=== PATIENT | female | born 1955 | race Caucasian/White ===

== ENCOUNTER 2019-09-20 08:24 | Day surgery (SDC) | payer OTHER ==
[2019-09-17 13:40] VITALS: BMI 28.8
--- NOTE | 2019-09-17 14:10 | RAD REPORT ---
EXAM DESCRIPTION: Bony Patel (2 Views)09/17/2019 2:02 pm CLINICAL HISTORY: Preop for cardiac catheterization COMPARISON: None FINDINGS: The lungs appear clear of acute infiltrate. The heart is mildly enlarged IMPRESSION: No acute abnormalities displayed
[2019-09-17 14:23] LABS: Absolute Lymphocytes (CBC) 1.9 K/uL (0.7-4.9); Basophils % 0.6 % (0-1.3); Hematocrit 39.1 % (36.0-45.0); Lymphocytes % 26.7 % (15.3-44.8); MPV 9.2 fL (7.6-11.3); RBC Red Blood Cell Count 4.53 M/uL (3.86-4.86)
[2019-09-17 14:30] LABS: Potassium 3.4 mmol/L (3.5-5.1)
[2019-09-17 14:53] LABS: Protime INR 1.96
--- NOTE | 2019-09-17 17:19 | EKG ---
Test Date: 2019-09-17 Test Time: 13:54:56 Shoe Repairer Helper: PATRICK MEASUREMENT RESULTS: Intervals: Rate: 60 SD: 146 QRSD: 84 QT: 428 QTc: 428 [place]: P: 54 SD: 146 QRS: -5 T: 66 INTERPRETIVE STATEMENTS: Sinus rhythm with marked sinus arrhythmia Nonspecific T wave abnormality Abnormal ECG No previous ECG available for comparison Electronically Signed On 09-17-19 17:18:10 CDT by Cody Dickerson
[2019-09-20] MEDS ORDERED: NA CHLORIDE 0.9% 500 ML ONE (08:29)
[2019-09-20] MEDS ORDERED: ATROPINE SULF 1 MG/10 ML SYR IV ONE (08:39)
[2019-09-20] MEDS ORDERED: HEPARIN 5000 UNIT/ML 1 ML VIAL ONE (08:39)
[2019-09-20] MEDS ORDERED: NICARDIPINE HCL 25 MG/10 ML IV ONE (08:39)
[2019-09-20] MEDS ORDERED: HEPA 1000U/500MLS 2,000 UNIT/1,000 ML BAG IV ONE (08:39)
[2019-09-20] MEDS ORDERED: NA CHLORIDE 0.9% 50 ML ONE (08:39)
[2019-09-20] MEDS ORDERED: FENTANYL CITR 100 MCG/2 ML ONE (09:01)
[2019-09-20] MEDS ORDERED: MIDAZOLAM HCL 2 MG/2 ML INJ ONE ×4 (09:01→09:45)
[2019-09-20] MEDS ORDERED: ASPIRIN 81 MG CHEWABLE TABLET ONE (10:19)
[2019-09-20] MEDS ORDERED: PRASUGREL (EFFIENT) 10 MG TAB ONE (10:20)
[2019-09-20] MEDS ORDERED: ESZOPICLONE 1 MG TAB PO PRN (10:43)
[2019-09-20] MEDS ORDERED: NITROGLYCERIN 0.4 MG/TAB SL PRN (13:00)
[2019-09-20] MEDS ORDERED: ACETAMINOPHEN 325 MG TABLET PO PRN (13:00)
[2019-09-20] MEDS ORDERED: NA CHLORIDE 0.9% 1,000 ML IV SCH (13:00)
[2019-09-20 18:00] VITALS: O2SAT 96
[2019-09-20] MEDS: CARVEDILOL 12.5 MG TAB PO SCH (18:15)
[2019-09-20] MEDS ORDERED: PNEUMOCOCCAL VACCINE 0.5 ML IMVAC ONE (19:00)
[2019-09-20] MEDS ORDERED: ATORVASTATIN 80 MG TAB PO SCH (21:00)
--- NOTE | 2019-09-20 21:35 | OP ---
Surgeon: Cody Dickerson MD Procedure: Left heart catheterization with coronary left ventricular angiography and percutaneous co ronary intervention with a stent in her mid LAD successful. Findings: The patient has a normal right coronary artery, normal left main, normal circumflex. Prox imal LAD likewise is normal. The mid LAD has a 20 mm long complicated irregular lesion with stenosis up to 80%. This was successfully dilated with a stent and after the procedure, the percent stenosis is 0% with JAYNA grade 3 flow. A 2.75 x 20 Synergy stent was used. Procedure In Detail: The patient was brought to the cardiac mobile lab technician in a fasting state. She had an abnormal Cardiolite showing apical ischemia. Right radial approach was used. She was prepared and draped in usual sterile fashion, sedated with Versed and fentanyl. Lidocaine 1% was used to anesthet ize the skin over the right radial artery. The artery was entered using a 21-gauge needle, cannulate d with a 0.021 inch diameter guidewire, 6-Bolivian Terumo sheath placed. Sheath was flushed and radial cocktail was given consisting of nicardipine, heparin, nitroglycerin. We guided a TIG catheter into the ascending aorta and angiogram of right coronary, left coronary, left ventricle all with this. A fter the decision was made to place a stent in the LAD, an exchange length J-wire and catheter was le ft in the ascending aorta. TIG catheter was removed. Angiomax was given. We demonstrated activated clotting time more than 400 seconds. An XB LAD 3.5 with side holes was used. It gave adequate supp ort. There was some difficulty cannulating the LAD and several repositionings of the guide had to be done. Once it was cannulated, it was difficult to actually cross the lesion because of side branche s. Once it was crossed, there was no predilation needed. We used a 2.75 x 20 stent to cross the les ion, inflated to 12 atmospheres, 1 reinflation after deflation and then the balloon part of the stent device was withdrawn and pictures were taken. Adequate result was seen, so we removed the wire and took orthogonal views. The angiographic result was excellent. We did use a 2.0 x 12 Emerge balloon. We never inflated it. It was used to support the wire and help it make some bends that would not d o without some kind of support, so there was no inflation of the 2.0 balloon. Complications: None. Estimated Blood Loss: 30 mL. Intranet Support: Lelia Li. ANASTASIA/HA Voice ID: [id number] Report ID: [id number]
[2019-09-20] MEDS: CODEINE 30MG/APAP 300MG TAB PO SCH (22:21)
[2019-09-20] MEDS: CILOSTAZOL 100 MG TAB PO SCH (22:21)
[2019-09-21 04:08] LABS: Hematocrit 35.8 % (36.0-45.0); MPV 9.3 fL (7.6-11.3); RBC Red Blood Cell Count 4.14 M/uL (3.86-4.86)
[2019-09-21 04:19] LABS: Protime INR 0.94
[2019-09-21] MEDS: CARVEDILOL 12.5 MG TAB PO SCH (06:18)
[2019-09-21] MEDS: CILOSTAZOL 100 MG TAB PO SCH (08:44)
[2019-09-21] MEDS: CODEINE 30MG/APAP 300MG TAB PO SCH (08:44)
[2019-09-21] MEDS ORDERED: VITAMIN D 1000 UNIT TAB PO SCH (09:00)
[2019-09-21] MEDS ORDERED: hydroCHLOROthiazide 25 MG TAB PO SCH (09:00)
[2019-09-21] MEDS ORDERED: ASPIRIN EC 81 MG TAB PO SCH (09:00)
[2019-09-21] MEDS ORDERED: CLOPIDOGREL 75 MG TABLET PO SCH (09:00)
[2019-09-21 10:48] VITALS: BP 122/68; TEMP 97.4
--- NOTE | 2019-09-22 04:42 | DS ---
Date of Discharge: 09/21/2019 She is discharged from outpatient in a bed status. Discharge Diagnosis: Coronary heart disease with a stent in her mid LAD artery. Procedures In The Hospital: Left heart catheterization, coronary angiography, left ventricular angio graphy, and percutaneous coronary intervention stent of the mid LAD with a 2.75 x 20 Synergy stent. Discharge Medications: Lipitor 80 mg per day, aspirin 81 mg per day, Plavix 75 mg per day, Coreg 12. 5 mg b.i.d., hydrochlorothiazide 25 mg daily, she also takes Lunesta, vitamin D, Tylenol 3 sometimes for her chronic pain syndrome prescribed by a pain specialist. Discharge Instructions: Her followup was to be with me in 2 weeks. She is to follow a low-saturated fat, low-sugar diet, begin an exercise program or alternatively we will send her to cardiac rehab. She seems to understand the procedure that was done, her discharge diagnosis, medications, diet plan, and followup plan. She will call my office when she gets home today. Her right radial cardiac cath site looks good. There is some bruising that occurred because the band slipped off in the first 5 m inutes. It was put on, but there is hemostasis and good blood flow to the hand and I expect a full r ecovery. ANASTASIA/HA Voice ID: [id number] Report ID: [id number]
== END 2019-09-21 08:58 | disposition home or self-care (01) ==
LOC: CCL 08:24 → 2ND 10:41 → CCL 09-21 08:58
PROVIDERS: ATTEND Internal Medicine
DX: I25.118 Atherosclerotic heart disease of native coronary artery with other forms of angina pectoris (principal); I48.0 Paroxysmal atrial fibrillation; I10 Essential (primary) hypertension; E78.2 Mixed hyperlipidemia; G47.30 Sleep apnea, unspecified; Z79.01 Long term (current) use of anticoagulants; Z87.891 Personal history of nicotine dependence; Z88.3 Allergy status to other anti-infective agents
CPT/HCPCS: 93005; 85025; 80048 ×2; 36415 ×2; 85610 ×2; 85347; 85730; 85027; 71046; 90471; 93458; 90670; C1893; C1725; C1877; C9600; J1644; J2250 ×4; J3010; J0583; J7040

== ENCOUNTER 2019-10-12 18:09 | Emergency (ER) | payer OTHER ==
--- NOTE | 2019-10-12 18:59 | RAD REPORT ---
EXAM DESCRIPTION: RAD - Wrist Right 3 View - 10/12/2019 6:52 pm CLINICAL HISTORY: PAIN Pain COMPARISON: No comparisons FINDINGS: Comminuted intra-articular fracture of the distal radius is seen. Ulnar styloid avulsion fracture also present.
--- NOTE | 2019-10-12 18:59 | RAD REPORT ---
EXAM DESCRIPTION: RAD - Hand Right 3 View - 10/12/2019 6:54 pm CLINICAL HISTORY: PAIN COMPARISON: No comparisons FINDINGS: Comminuted intra-articular fracture distal radius is seen with moderate angulation. Ulnar styloid avulsion fracture also present.
[2019-10-12] MEDS ORDERED: ONDANSETRON 4 MG/2 ML VIAL ONE (19:13)
[2019-10-12] MEDS ORDERED: MORPHINE 4 MG/ML SYR ONE (19:13)
[2019-10-12] MEDS ORDERED: FENTANYL CITR 100 MCG/2 ML ONE ×3 (19:36→21:09)
[2019-10-12] MEDS ORDERED: PROPOFOL 200 MG/20 ML VIAL IV ONE (20:09)
[2019-10-12] MEDS ORDERED: NA CHLORIDE 0.9% 500 ML ONE (20:09)
--- NOTE | 2019-10-12 20:46 | RAD REPORT ---
EXAM DESCRIPTION: RAD - Wrist Right 2 View - 10/12/2019 8:40 pm CLINICAL HISTORY: PAIN Pain COMPARISON: Wrist Right 3 View dated 10/12/2019 FINDINGS: The previously noted distal radius and ulnar fractures have been reduced and placed within a splint. Mild fracture impaction and slight displacement fracture fragments persists. No dislocat ion evident.
--- NOTE | 2019-10-12 20:47 | RAD REPORT ---
EXAM DESCRIPTION: RAD - Knee Right 3 View - 10/12/2019 8:38 pm CLINICAL HISTORY: PAIN COMPARISON: No comparisons FINDINGS: No acute fracture or dislocation is seen. Trace suprapatellar joint effusion.
[2019-10-12] MEDS ORDERED: HYDROCODONE/APAP 10/325 TAB ONE (20:55)
--- NOTE | 2019-10-12 21:07 | ER ---
Nurse's Notes [facility] Name: Elena Chan Age: 64 yrs Sex: Female : 1955 Arrival Date: 10/12/2019 Time: 18:10 Bed 2 Private MD: Diagnosis: Closed comminuted intra-articular distal radiis and ulna fracture Presentation: 10/12 18:36 Presenting complaint: Patient states: patient fell while doing gardening and hit her rv wrist on a concrete. actively bleeding. Care prior to arrival: None. Mechanism of Injury: Fall. Trauma event details: Injury occurred in the [facility], Injury occurred: at home. Injury occurred: October 12, 2019 Injury occurred at: 18:00. 18:36 Acuity: FAN 3 rv 18:36 Method Of Arrival: Ambulatory rv 18:41 Transition of care: patient was not received from another setting of care. Onset of rv symptoms was October 12, 2019 at 18:00. Risk Assessment: Do you want to hurt yourself or someone else? Patient reports no desire to harm self or others. Initial Sepsis Screen: Does the patient meet any 2 criteria? No. Patient's initial sepsis screen is negative. Does the patient have a suspected source of infection? No. Patient's initial sepsis screen is negative. Triage Assessment: 18:41 General: Appears uncomfortable, Behavior is calm, cooperative. Pain: Complains of pain rv in right hand. EENT: No signs and/or symptoms were reported regarding the EENT system. Neuro: Level of Consciousness is awake, alert, obeys commands, Oriented to person, place, time, situation. Cardiovascular: Patient's skin is warm and dry. Respiratory: Airway is patent. GI: No signs and/or symptoms were reported involving the gastrointestinal system. : No signs and/or symptoms were reported regarding the genitourinary system. Derm: Skin with poor turgor. Musculoskeletal: Swelling present in right hand. Injury Description: Deformity sustained to right hand is displaced, dislocated, was sustained 30-60 minutes ago. Historical: - Allergies: 18:41 unable to recall; rv - Home Meds: 18:41 Plavix 75 mg Oral tab 1 tab once daily [Active]; Aspirin Oral [Active]; rv - PMHx: 18:41 Hypertension; rv - PSHx: 18:41 Angioplasty; rv - Immunization history:: Adult Immunizations up to date. - Social history:: Smoking status: unknown. - Ebola Screening: : No symptoms or risks identified at this time. Screenin:41 Abuse screen: Denies threats or abuse. Denies injuries from another. Nutritional bp screening: No deficits noted. Tuberculosis screening: No symptoms or risk factors identified. Fall Risk Fall in past 12 months (25 points). No secondary diagnosis (0 pts). No IV (0 pts). Ambulatory Aid- None/Bed Rest/Nurse Assist (0 pts). Gait- Normal/Bed Rest/Wheelchair (0 pts) Mental Status- Oriented to own ability (0 pts). Total Avelar Fall Scale indicates Low Risk Score (25-44 pts). Fall prevention measures have been instituted. Side Rails Up X 2 Placed close to Nursing Station Frequent Obs/Assesments occuring Family Present and informed to notify staff if they need to leave bedside As available Patient and Family Educated on Fall Prevention Program and strategies. Assessment: 18:41 General: SEE TRIAGE NOTE. bp 18:45 General: Appears uncomfortable, Behavior is calm, cooperative. Pain: Complains of pain aa5 in right wrist Pain does not radiate. Pain currently is 10 out of 10 on a pain scale. Quality of pain is described as sharp, throbbing, Pain began post-fall Is continuous. Neuro: Level of Consciousness is awake, alert, obeys commands, Oriented to person, place, time, situation. Cardiovascular: Heart tones S1 S2 present Capillary refill < 3 seconds is brisk in bilateral fingers Rhythm is regular. Respiratory: Airway is patent Respiratory effort is even, unlabored, Respiratory pattern is regular, symmetrical. GI: No signs and/or symptoms were reported involving the gastrointestinal system. : No signs and/or symptoms were reported regarding the genitourinary system. EENT: No signs and/or symptoms were reported regarding the EENT system. Derm: Skin is pink, warm \T\ dry. Laceration that is difficult to visualize at this time noted to right little finger, dry blood noted to site, no active bleeding at this time. Musculoskeletal: Deformity noted to right wrist. 19:15 General: Appears uncomfortable, Behavior is appropriate for age. Pain: Complains of lp1 pain in right wrist Pain currently is 10 out of 10 on a pain scale. Neuro: No deficits noted. Cardiovascular: Patient's skin is warm and dry. Respiratory: No deficits noted. Derm: Skin is pink, warm \T\ dry. Musculoskeletal: Bony deformity noted of right wrist. 20:00 Reassessment: Dr. St at bedside for conscious sedation. lp1 20:30 Reassessment: States pain to right wrist at this time;. General: Appears in no apparent lp1 distress. Neuro: Level of Consciousness is awake, alert, obeys commands. Cardiovascular: Capillary refill < 3 seconds in right fingers Splint in place to right arm . 20:50 Reassessment: Verbal order from Dr. St for [place] 10-325 x1 PO. lp1 21:10 Reassessment: Dr. St at bedside to update patient and family; Verbal order for lp1 Fentanyl 50 mcg IV x1 and Tetanus IM x1. 21:25 Reassessment: Patient appears in no apparent distress at this time. Patient states lp1 feeling better. Patient states symptoms have improved. Cardiovascular: Capillary refill < 3 seconds in right fingers. Vital Signs: 18:37 BP 159 / 62; Pulse 72; Resp 16; Pulse Ox 100% ; Weight 76.2 kg; Height 5 ft. 4 in. rv (162.56 cm); 19:23 BP 139 / 90; Pulse 73; Resp 18; Pulse Ox 99% on R/A; Pain 10/10; lp1 20:00 BP 139 / 85; Pulse 65; Resp 17; Temp 98.1(O); Pulse Ox 98% on R/A; lp1 20:38 BP 127 / 71; Pulse 64; Resp 15; Pulse Ox 96% on R/A; lp1 21:00 BP 131 / 72; Pulse 62; Resp 15; Pulse Ox 97% on R/A; Pain 9/10; lp1 18:37 Body Mass Index 28.84 (76.20 kg, 162.56 cm) rv [place] Coma Score: 18:37 Eye Response: spontaneous(4). Verbal Response: oriented(5). Motor Response: obeys rv commands(6). Total: 15. Trauma Score (Adult): 18:37 Eye Response: spontaneous(1); Verbal Response: oriented(1); Motor Response: obeys rv commands(2); Systolic BP: > 89 mm Hg(4); Respiratory Rate: 10 to 29 per min(4); [place] Score: 15; Trauma Score: 12 ED Course: 18:10 Patient arrived in ED. am2 18:36 Richard Nobles RN is Primary Nurse. rv 18:37 Triage completed. rv 18:41 Patient has correct armband on for positive identification. Bed in low position. Call bp light in reach. Side rails up X2. 18:[address] MD is Attending Physician. kdr 18:53 XRAY Wrist RIGHT 3 view In Process Unspecified. EDMS 18:53 XRAY Hand RIGHT 3 View In Process Unspecified. EDMS 18:53 Arm band placed on. bp 19:00 Report given to CHRISTEN Gomez. aa5 19:22 Inserted saline lock: 22 gauge in left antecubital area, using aseptic technique. lp1 19:58 Dressings: Band aid x 1 palmar aspect of middle phalanx of right little finger. jb5 Irrigation of opened blood blister on the underside of the right pinky finger. on palmar aspect of middle phalanx of right little finger irrigated with normal saline Patient tolerated well. 20:00 Consent for conscious sedation explained by staff, explained by physician, signed by lp1 spouse. 20:00 Assist provider with reduction of right wrist using manipulation, Set up for procedure. lp1 Performed by Bharath St MD Immobilized with sling. 20:10 Sugar tong splint to right arm; Dr. St at bedside. lp1 20:10 Sling applied to right arm. lp1 20:39 Wrist Right 2 View XRAY In Process Unspecified. EDMS 20:39 Knee Right 3 View XRAY In Process Unspecified. EDMS 21:05 Aron Mansfield MD is Referral Physician. kdr 21:25 IV discontinued, No redness/swelling at site. Pressure dressing applied. lp1 Administered Medications: 19:22 Drug: morphine 4 mg Route: IVP; Site: left antecubital; lp1 19:40 Follow up: Response: No adverse reaction; No change in condition; Pain is unchanged, lp1 physician notified 19:22 Drug: Zofran 4 mg Route: IVP; Site: left antecubital; lp1 19:40 Follow up: Response: No adverse reaction lp1 19:40 Drug: fentaNYL (PF) 50 mcg {Note: RASS 0.} Route: IVP; Site: left antecubital; bb 20:00 Follow up: Response: Pain is decreased lp1 20:14 Drug: Propofol 100 mg {Note: Administered by Dr. St.} Route: IVP; Site: left lp1 antecubital; 20:15 Follow up: Response: Marked relief of symptoms lp1 20:14 Drug: NS 0.9% 500 ml Route: IV; Rate: bolus; Site: left antecubital; lp1 20:30 Follow up: IV Status: IV converted to saline lock; IV Intake: 250ml lp1 20:55 Drug: [place] 10 mg-325 mg 1 tabs {Note: RASS 1.} Route: PO; lp1 21:19 Follow up: Response: No adverse reaction lp1 21:14 Drug: fentaNYL (PF) 50 mcg Route: IVP; Site: left antecubital; lp1 21:30 Follow up: Response: Pain is decreased; RASS: Alert and Calm (0) lp1 21:20 Drug: Tetanus-Diphtheria Toxoid Adult 0.5 ml {Drapery Worker: Digerati. Exp: lp1 05/06/2021. Lot #: [id number]. } Route: IM; Site: left deltoid; 21:30 Follow up: Response: Medication administered at discharge. lp1 Intake: 20:30 IV: 250ml; Total: 250ml. lp1 Outcome: 21:06 Discharge ordered by . kdr 21:25 Discharged to home via wheelchair, with family. lp1 21:25 Condition: good 21:25 Discharge instructions given to patient, family, Instructed on discharge instructions, follow up and referral plans. medication usage, Demonstrated understanding of instructions, follow-up care, medications, splint care, Prescriptions given X 1. 21:30 Patient left the ED. lp1 Signatures: Dispatcher [employer] EDMS Bharath St MD MD kdr Deisy Clifton RN RN bb Shanita Jackson, RN RN [email or web address] Patricia Acosta RN RN lp1 Ritika Palma Amanda am2 Peltier, Brian RN RN bp Richard Nobles RN RN rv Corrections: (The following items were deleted from the chart) 18:43 18:37 Pulse 72bpm; Resp 16bpm; Pulse Ox 100%; 76.2 kg; Height 5 ft. 4 in.; BMI: 28.8; rvrv 21:18 21:10 Reassessment: Dr. St at bedside to update patient and family; Verbal order lp1 for Fentanyl 50 mcg IV x1 lp1 21: 21:44 Patient left the ED. lp1 lp1
--- NOTE | 2019-10-12 21:07 | EDPHYS ---
Physician Documentation [facility] Name: Elena Chan Age: 64 yrs Sex: Female : 1955 Arrival Date: 10/12/2019 Time: 18:10 Bed 2 Private MD: ED Physician Bharath tS HPI: 10/12 20:29 This 64 yrs old Female presents to ER via Ambulatory with complaints of Fall kdr Injury, Wrist Injury. 20:29 Details of fall: The patient fell from an upright position, while walking. Onset: The kdr symptoms/episode began/occurred acutely, just prior to arrival. Associated injuries: The patient sustained right wrist, decreased range of motion, deformity, right knee, contusion, painful injury. Historical: - Allergies: 18:41 unable to recall; rv - Home Meds: 18:41 Plavix 75 mg Oral tab 1 tab once daily [Active]; Aspirin Oral [Active]; rv - PMHx: 18:41 Hypertension; rv - PSHx: 18:41 Angioplasty; rv - Immunization history:: Adult Immunizations up to date. - Social history:: Smoking status: unknown. - Ebola Screening: : No symptoms or risks identified at this time. ROS: 20:29 Constitutional: Negative for fever, chills, and weight loss, Eyes: Negative for injury, kdr pain, redness, and discharge, Neck: Negative for injury, pain, and swelling, Cardiovascular: Negative for chest pain, palpitations, and edema, Respiratory: Negative for shortness of breath, cough, wheezing, and pleuritic chest pain, Abdomen/GI: Negative for abdominal pain, nausea, vomiting, diarrhea, and constipation, Back: Negative for injury and pain, : Negative for injury, bleeding, discharge, and swelling, Skin: Negative for injury, rash, and discoloration, Neuro: Negative for headache, weakness, numbness, tingling, and seizure activity. Psych: Negative for depression, anxiety, suicide ideation, homicidal ideation, and hallucinations, Allergy/Immunology: Negative for hives, rash, and allergies, Endocrine: Negative for neck swelling, polydipsia, polyuria, polyphagia, and marked weight changes, Hematologic/Lymphatic: Negative for swollen nodes, abnormal bleeding, and unusual bruising. 20:29 MS/extremity: Positive for injury or acute deformity, decreased range of motion, pain, swelling, tenderness, There is an abrasion to the greater thenar eminence - does not appear to be associated with the fracture (not open).. Exam: 20:29 Constitutional: This is a well developed, well nourished patient who is awake, alert, kdr and in no acute distress. Head/Face: Normocephalic, atraumatic. Eyes: Pupils equal round and reactive to light, extra-ocular motions intact. Lids and lashes normal. Conjunctiva and sclera are non-icteric and not injected. Cornea within normal limits. Periorbital areas with no swelling, redness, or edema. Neck: Trachea midline, no thyromegaly or masses palpated, and no cervical lymphadenopathy. Supple, full range of motion without nuchal rigidity, or vertebral point tenderness. No Meningismus. Chest/axilla: Normal chest wall appearance and motion. Nontender with no deformity. No lesions are appreciated. Cardiovascular: Regular rate and rhythm with a normal S1 and S2. No gallops, murmurs, or rubs. Normal PMI, no JVD. No pulse deficits. Respiratory: Lungs have equal breath sounds bilaterally, clear to auscultation and percussion. No rales, rhonchi or wheezes noted. No increased work of breathing, no retractions or nasal flaring. Abdomen/GI: Soft, non-tender, with normal bowel sounds. No distension or tympany. No guarding or rebound. No evidence of tenderness throughout. Back: No spinal tenderness. No costovertebral tenderness. Full range of motion. MS/ Extremity: Pulses equal, no cyanosis. Neurovascular intact. Full, normal range of motion. Neuro: Awake and alert, GCS 15, oriented to person, place, time, and situation. Cranial nerves II-XII grossly intact. Motor strength 5/5 in all extremities. Sensory grossly intact. Cerebellar exam normal. Normal gait. Psych: Awake, alert, with orientation to person, place and time. Behavior, mood, and affect are within normal limits. 20:29 Musculoskeletal/extremity: Extremities: grossly normal except: noted in the right wrist: decreased ROM, deformity, pain, swelling, tenderness, N/v intact, noted in the right knee: contusion, decreased ROM, pain, tenderness, N/v intact distally. Vital Signs: 18:37 BP 159 / 62; Pulse 72; Resp 16; Pulse Ox 100% ; Weight 76.2 kg; Height 5 ft. 4 in. rv (162.56 cm); 19:23 BP 139 / 90; Pulse 73; Resp 18; Pulse Ox 99% on R/A; Pain 10/10; lp1 20:00 BP 139 / 85; Pulse 65; Resp 17; Temp 98.1(O); Pulse Ox 98% on R/A; lp1 20:38 BP 127 / 71; Pulse 64; Resp 15; Pulse Ox 96% on R/A; lp1 21:00 BP 131 / 72; Pulse 62; Resp 15; Pulse Ox 97% on R/A; Pain 9/10; lp1 18:37 Body Mass Index 28.84 (76.20 kg, 162.56 cm) rv Mary Coma Score: 18:37 Eye Response: spontaneous(4). Verbal Response: oriented(5). Motor Response: obeys rv commands(6). Total: 15. Trauma Score (Adult): 18:37 Eye Response: spontaneous(1); Verbal Response: oriented(1); Motor Response: obeys rv commands(2); Systolic BP: > 89 mm Hg(4); Respiratory Rate: 10 to 29 per min(4); Montgomery Score: 15; Trauma Score: 12 Procedures: 20:26 Reduction: of the right wrist, using traction, manipulation, Immobilized with OCL kdr splint, Patient tolerated well. Post reduction film - reveals normal alignment. Moderate sedation: Pre-procedure assessment: ASA physical classification: II - mild/mod systemic disease that does not interfere with daily routines, Airway assessment: able to hyperextend neck, able to maintain airway, can open mouth without difficulty, Mallampati classification of tongue size: II - faucial pillars and soft palate can be visualized, but uvula is masked by the base of the tongue, Monitoring during procedure: manager core, continuous pulse oximetry, nurse at bedside at all times, Medications employed: Fentanyl, 50 mcg(s), Propofol, Post-procedure assessment: the patient is moderately sedated, Respiratory status: requires supplemental oxygen to maintain acceptable oxygen saturation, a reversal agent was not used, The patient tolerated well and was awake as the splint (sugar tong) was being finished. MDM: 20:26 Data reviewed: vital signs, nurses notes. kdr 20:55 ED course: Post reduction films show good alignment - the patient is still having pain kdr will medicate with Gillham. 21:06 Patient medically screened. kdr 21:08 ED course: Post-reduction films with good alignment in both lateral and AP view. kdr 21:09 ED course: N/v intact distal and improved sensation and color to all fingers. kdr 10/12 18:34 Order name: XRAY Wrist RIGHT 3 view; Complete Time: 20:25 rn 10/12 18:34 Order name: XRAY Hand RIGHT 3 View; Complete Time: 20:25 rn 10/12 20:22 Order name: Wrist Right 2 View XRAY; Complete Time: 22:18 kdr 10/12 20:23 Order name: Knee Right 3 View XRAY; Complete Time: 22:18 kdr Administered Medications: 19:22 Drug: morphine 4 mg Route: IVP; Site: left antecubital; lp1 19:40 Follow up: Response: No adverse reaction; No change in condition; Pain is unchanged, lp1 physician notified 19:22 Drug: Zofran 4 mg Route: IVP; Site: left antecubital; lp1 19:40 Follow up: Response: No adverse reaction lp1 19:40 Drug: fentaNYL (PF) 50 mcg {Note: RASS 0.} Route: IVP; Site: left antecubital; bb 20:00 Follow up: Response: Pain is decreased lp1 20:14 Drug: Propofol 100 mg {Note: Administered by Dr. St.} Route: IVP; Site: left lp1 antecubital; 20:15 Follow up: Response: Marked relief of symptoms lp1 20:14 Drug: NS 0.9% 500 ml Route: IV; Rate: bolus; Site: left antecubital; lp1 20:30 Follow up: IV Status: IV converted to saline lock; IV Intake: 250ml lp1 20:55 Drug: Gillham 10 mg-325 mg 1 tabs {Note: RASS 1.} Route: PO; lp1 21:19 Follow up: Response: No adverse reaction lp1 21:14 Drug: fentaNYL (PF) 50 mcg Route: IVP; Site: left antecubital; lp1 21:30 Follow up: Response: Pain is decreased; RASS: Alert and Calm (0) lp1 21:20 Drug: Tetanus-Diphtheria Toxoid Adult 0.5 ml {Manager Track: [employer]. Exp: lp1 05/06/2021. Lot #: [id number]. } Route: IM; Site: left deltoid; 21:30 Follow up: Response: Medication administered at discharge. lp1 Disposition: 10/12/19 21:06 Discharged to Home. Impression: Closed comminuted intra-articular distal radiis and ulna fracture. - Condition is Stable. - Discharge Instructions: Colles Fracture. - Prescriptions for Tylenol- Codeine #3 300-30 mg Oral Tablet - take 2 tablets by ORAL route every 4-6 hours As needed; 30 tablet. - Medication Reconciliation Form, Thank You Letter, Prescription Opioid Use form. - Follow up: Private Physician; When: 2 - 3 days; Reason: If symptoms return, Further diagnostic work-up, Recheck today's complaints, Continuance of care, Re-evaluation by your physician. Follow up: Aron Mansfield MD; When: 2 - 3 days; Reason: If symptoms return, Further diagnostic work-up, Recheck today's complaints, Continuance of care, Re-evaluation by your physician. - Problem is new. - Symptoms have improved. Signatures: Dispatcher [employer] EDMS Bharath St MD MD kdr Deisy Clifton RN RN bb Patricia Acosta RN RN lp1 Phil Kaufman, RN RN bp Richard Nobles, RN RN rv Corrections: (The following items were deleted from the chart) 21:44 21:06 10/12/2019 21:06 Discharged to Home. Impression: Closed comminuted lp1 intra-articular distal radiis and ulna fracture. Condition is Stable. Forms are Medication Reconciliation Form, Thank You Letter, Antibiotic Education, Prescription Opioid Use. Follow up: Private Physician; When: 2 - 3 days; Reason: If symptoms return, Further diagnostic work-up, Recheck today's complaints, Continuance of care, Re-evaluation by your physician. Follow up: Aron Mansfield; When: 2 - 3 days; Reason: If symptoms return, Further diagnostic work-up, Recheck today's complaints, Continuance of care, Re-evaluation by your physician. Problem is new. Symptoms have improved. kdr
[2019-10-12] MEDS ORDERED: TETANUS & DIPHTHERIA TOX,ADULT 0.5 ML VIAL ONE (21:22)
[2019-10-12 22:18] VITALS: TEMP 98.1
[2019-10-12 22:21] VITALS: BP 131/72; O2SAT 97
== END 2019-10-12 21:44 | disposition home or self-care (01) ==
LOC: ER 18:09
PROC: 0PSHXZZ Reposition Right Radius, External Approach (ICD-10-PCS; principal; 2019-10-12)
PROC: 0PSKXZZ Reposition Right Ulna, External Approach (ICD-10-PCS; 2019-10-12)
DX: S52.571A Other intraarticular fracture of lower end of right radius, initial encounter for closed fracture (principal); S52.601A Unspecified fracture of lower end of right ulna, initial encounter for closed fracture; W19.XXXA Unspecified fall, initial encounter; Y93.01 Activity, walking, marching and hiking; Y92.9 Unspecified place or not applicable; I10 Essential (primary) hypertension; Z79.01 Long term (current) use of anticoagulants; Z79.82 Long term (current) use of aspirin; Z23 Encounter for immunization
CPT/HCPCS: 73130; 73110; 73100; 73562; 90471; 90714; 96375; 96374; 99285; 25605; J2704; J3010 ×2; J7040; J2405

== ENCOUNTER → 2019-10-18 | Day surgery (SDC) | payer OTHER ==
[~2019-10-18] MED LIST: CEFAZOLIN/SWI 1gm 1 GM/10 ML SYR ONE; CODEINE 30MG/APAP 300MG TAB ONE; FENTANYL CITR 100 MCG/2 ML ONE; KETOROLAC 30 MG/ML INJ ONE; LIDOCAINE 1% MPF 5 ML VIAL ONE; MEPERIDINE HCL 25 MG/0.5 ML ONE; MIDAZOLAM HCL 2 MG/2 ML INJ ONE; ONDANSETRON 4 MG/2 ML VIAL ONE; PROPOFOL 200 MG/20 ML VIAL IV ONE; Ringers Lactate 1,000 ML IV ONE
[2019-10-18 09:38] LABS: Absolute Lymphocytes (CBC) 1.1 K/uL (0.7-4.9); Hematocrit 36.4 % (36.0-45.0); Lymphocytes % 18.7 % (15.3-44.8); MPV 8.7 fL (7.6-11.3); RBC Red Blood Cell Count 4.17 M/uL (3.86-4.86)
[2019-10-18 09:52] LABS: Potassium 3.7 mmol/L (3.5-5.1)
--- NOTE | 2019-10-18 13:00 | P.BOP ---
Preoperative diagnosis: Intraarticular distal radius fracture Postoperative diagnosis: same Primary procedure: ORIF distal radius with 2 intraarticualr fragment fixation Estimated blood loss: 10 Anesthesia: General Complications: None Transferred to: Recovery Room Condition: Good
--- NOTE | 2019-10-18 13:00 | RAD REPORT ---
EXAM DESCRIPTION: RAD - Wrist Right 3 View - 10/18/2019 12:53 pm CLINICAL HISTORY: ORIF IN OR5 Pain COMPARISON: <Comparisons> FINDINGS: Fluoroscopy time 0.8 minutes.
[2019-10-18] MEDS: HYDROMORPHONE HCL 2 MG/ML inj ONE ×4 (13:06→13:25)
[2019-10-18] MEDS: HYDROMORPHONE HCL 1 MG/ML INJ ONE ×4 (13:35→13:55)
[2019-10-18 14:13] VITALS: TEMP 98.5
[2019-10-18 16:35] VITALS: BP 113/94; O2SAT 96
--- NOTE | 2019-10-18 23:29 | OP ---
Date of Procedure: 10/18/2019 Surgeon: Aron Mansfield MD Preoperative Diagnosis: Right distal radius fracture with intra-articular extension and displacement . Postoperative Diagnosis: Open reduction and internal fixation of intra-articular 2 part distal radiu s fracture using the Acumed 2 volar plating set. Estimated Blood Loss: 10 mL. Complications: There were no complications. Specimens: No pathology specimen sent. Indication For Operation: Ms. Chan is a 64-year-old female, who was trying to water her plants whe n she unfortunately fell injuring her right upper extremity. She was seen and examined in my office where she had some complaints of knee pain, some complaints of bruising to her chest, but was primari ly there for right wrist pain. She is neurovascularly intact with no sign of an open injury other th an an abrasion along the fifth digit. X-rays were reviewed, which revealed a displaced intra-articul ar fracture of the distal radius. Risks, benefits, and alternatives to treatment were discussed with both her and the family. They state they understand things as presented and wishes to proceed. Description Of Procedure: The patient was taken to the operating room and placed in supine position. General anesthesia was obtained by the staff. Following this, well-padded tourniquet was placed on superior right arm. Right upper extremity was than prepped and draped in usual sterile fashion for the procedure. Following this, the arm was then elevated, but not exsanguinated. Tourniquet was jose sed. A standard volar approach of Luis Felipe was then taken down carefully through the skin and soft tiss ues with a zig-zag being made at the distal wrist crease. The flexor carpi radialis was encountered and retracted radialward to protect the radial artery. The underlying sheath was then exploited and the tendon and muscle belly of the flexor pollicis longus was encountered. It was then shift ulnarwa rd to protect the median nerve. This gave good visualization of the pronator quadratus, which was di vided in its midsubstance and gently lifted off the volar aspect of the distal radius. This allowed for visualization of the fracture and fracture pattern. There was a very long split along the radial aspect of the radius, also accompanied by a transverse fracture consisting as a T-type presentation. Combination of open reduction techniques as well as manual traction were used to reduce the articul ar surface anatomically. Following this, the Acumed 2 volar radius plate was then applied in a stand julita fashion. Care being taken to use biplanar C-arm radiography for placement of the plate as well a s length of screws. After this, the wound was irrigated and skin was closed using interrupted nylon sutures. The patient was then placed in extremely well-padded sterile dressing as well as a sugar-to ng splint, awakened, and taken to the recovery room in good condition. There were no complications. /HA Voice ID: [id number] Report ID: [id number]
== END | disposition home or self-care (01) ==
LOC: OR 09:00
PROVIDERS: ATTEND Orthopaedic Surgery
PROC: 0PSH04Z Reposition Right Radius with Internal Fixation Device, Open Approach (ICD-10-PCS; principal; 2019-10-18 11:30)
DX: S52.571A Other intraarticular fracture of lower end of right radius, initial encounter for closed fracture (principal); M19.90 Unspecified osteoarthritis, unspecified site; M79.7 Fibromyalgia; I10 Essential (primary) hypertension; I25.10 Atherosclerotic heart disease of native coronary artery without angina pectoris; Z79.01 Long term (current) use of anticoagulants; Z79.02 Long term (current) use of antithrombotics/antiplatelets; Z95.5 Presence of coronary angioplasty implant and graft; Z88.3 Allergy status to other anti-infective agents; Z91.048 Other nonmedicinal substance allergy status
CPT/HCPCS: 85025; 80048; 36415; 73110; 25608; J2704; J2250; J1170 ×3; J3010; J2175; J0690; J7120; J2405

== ENCOUNTER 2022-10-10 11:00 | Day surgery (SDC) | payer OTHER ==
[2022-10-09 11:32] LABS: Absolute Lymphocytes (CBC) 1.6 K/uL (0.7-4.9); Hematocrit 40.8 % (36.0-45.0); Lymphocytes % 27.2 % (15.3-44.8); MCV 89.1 fL (80-100); RBC Red Blood Cell Count 4.59 M/uL (3.86-4.86)
[2022-10-09 11:33] LABS: Protime INR 0.99
[2022-10-09 11:37] LABS: Potassium 3.6 mmol/L (3.5-5.1)
--- NOTE | 2022-10-09 11:45 | RAD REPORT ---
EXAM DESCRIPTION: RAD - Chest Pa And Lat (2 Views) - 10/09/2022 11:15 am CLINICAL HISTORY: Pre op pending heart catheterization COMPARISON: Chest Pa And Lat (2 Views) dated 09/17/2019 FINDINGS: Lines: None. Lungs: No evidence of edema or pneumonia. Pleural: No significant pleural effusions or pneumothorax. Cardiac: The heart size is within normal limits. Mediastinum: Within normal limits. Bones: No acute fractures. Other: None IMPRESSION: No acute cardiopulmonary disease.
--- NOTE | 2022-10-10 06:31 | EKG ---
Test Date: 2022-10-09 Test Time: 11:00:03 Mailroom Supervisor: BRENDA MEASUREMENT RESULTS: Intervals: Rate: 62 PA: 142 QRSD: 96 QT: 426 QTc: 432 Wilmore: P: 52 PA: 142 QRS: -16 T: 70 INTERPRETIVE STATEMENTS: Normal sinus rhythm Normal ECG Compared to ECG 09/17/2019 13:54:56 Sinus arrhythmia no longer present T-wave abnormality no longer present Electronically Signed On 10-10-22 06:30:25 INDEPENDENT FREIGHT AGENT by Luis Ocasio
[2022-10-10] MEDS ORDERED: LIDOCAINE 1% 20 ML MDV ONE (11:12)
[2022-10-10] MEDS ORDERED: HEPA 1000U/500MLS 2,000 UNIT/1,000 ML BAG IV ONE (11:12)
[2022-10-10] MEDS ORDERED: FENTANYL CITR 100 MCG/2 ML ONE (11:13)
[2022-10-10] MEDS ORDERED: HEPARIN 5000 UNIT/ML 1 ML VIAL ONE (11:13)
[2022-10-10] MEDS ORDERED: MIDAZOLAM HCL 2 MG/2 ML INJ ONE (11:13)
[2022-10-10] MEDS ORDERED: NA CHLORIDE 0.9% 500 ML ONE (11:13)
[2022-10-10] MEDS ORDERED: NITROGLYCERIN 100 MCG/ML SYR (for cath lab use only) IV ONE (11:14)
[2022-10-10] MEDS ORDERED: HEPARIN 10,000 UNIT/10 ML VIAL IV ONE (11:14)
[2022-10-10] MEDS ORDERED: VERAPAMIL HCL 10 MG/4 ML VIAL IV ONE (11:14)
[2022-10-10] MEDS ORDERED: ATROPINE SULF 1 MG/10 ML SYR IV ONE (11:14)
[2022-10-10] MEDS ORDERED: NITROGLYCERIN/D5W 25 MG/250 ML BTL IV ONE (11:14)
--- NOTE | 2022-10-10 12:30 | OP ---
Date of Procedure: 10/10/2022 Surgeon: CRAIG CRUZ Procedures Performed: 1.Selective coronary angiogram. 2.Left heart catheterization. Indication: Abnormal stress test. Access: Right radial artery 6-Ethiopian closed with TR band. Complications: None. Bleeding: Less than 10 mL. Anesthesia: Total sedation time was 15 minutes. Description Of Procedure: After risks, benefits, alternatives were explained, the patient agreed to the procedure and signed informed consent. The patient was brought into cardiac history laboratory, prepped and draped in the usual sterile fashion. Then, I accessed right radial artery using Paperfoldi c micropuncture kit, placed a 6-Ethiopian Slender sheath, and took 5-Ethiopian [place] 4.0 catheter into the aortic root, engaged left main and right coronary artery, took standard views. Then, a catheter was pushed over the wire into the LV, measured the LVEDP and pullback did not record any gradient. I the n removed the catheter and sheath, placed TR band with good hemostasis. Findings: 1.Left main; large, normal. 2.LAD; moderate size vessel with proximal to mid 30% to 40% stenosis and then there was a patent rich nt and then the LAD appears normal. Normal diagonal branches. 3.Left circumflex; large vessel and normal. 4.RCA; very large and dominant and normal. 5.Normal LVEDP at 8-10 mmHg. Conclusion: 1.Mild nonobstructive coronary artery disease with patent LAD stent. 2.Normal LVEDP. Plan: Medical management and followup stress test in 1 year. /HA Voice ID: [id number] Report ID: [id number]
[2022-10-10 15:56] VITALS: O2SAT 99
[2022-10-10 16:08] VITALS: BP 108/65
== END 2022-10-10 15:00 | disposition home or self-care (01) ==
LOC: CCL 11:00
PROVIDERS: ATTEND Internal Medicine
DX: I25.10 Atherosclerotic heart disease of native coronary artery without angina pectoris (principal); I70.223 Atherosclerosis of native arteries of extremities with rest pain, bilateral legs; I48.0 Paroxysmal atrial fibrillation; I10 Essential (primary) hypertension; E78.2 Mixed hyperlipidemia; Z95.5 Presence of coronary angioplasty implant and graft; F17.210 Nicotine dependence, cigarettes, uncomplicated; Z88.3 Allergy status to other anti-infective agents; Z91.09 Other allergy status, other than to drugs and biological substances; Z79.899 Other long term (current) drug therapy
CPT/HCPCS: 93005; 85025; 80048; 36415; 85610; 85730; 71046; 93458; 76937; C1893; Q9966; J1644 ×2; J3010; J7040; J2250

== ENCOUNTER 2022-11-04 11:52 | Emergency (ER) | payer OTHER ==
[2022-11-04] MEDS ORDERED: ONDANSETRON 4 MG (ODT) TAB ONE (12:41)
[2022-11-04] MEDS ORDERED: MORPHINE 4 MG/ML SYR ONE (12:41)
[2022-11-04] MEDS ORDERED: METHYLPREDNISOLONE 125 MG INJ ONE (12:41)
--- NOTE | 2022-11-04 12:50 | EDPHYS ---
Physician Documentation [facility] Name: Elena Chan Age: 67 yrs Sex: Female : 1955 Arrival Date: 11/04/2022 Time: 11:55 Bed Treatment Private MD: ED Physician Bharath St HPI: 11/04 12:46 This 67 yrs old Female presents to ER via Ambulatory with complaints of Shoulder Pain, kb Arm Pain. 12:45 Pt reports pain to right side of neck that radiates down right arm. Reports pain and kb decreased rom of right shoulder. States she was lifting a lot of [employer] boxes yesterday. 12:46 The patient or guardian complains of decreased range of motion, pain, tenderness. The kb complaints affect the anterior aspect of right shoulder and posterior aspect of right shoulder. Context: resulted from lifting or pulling, a heavy object. Onset: The symptoms/episode began/occurred last night. Treatment prior to arrival includes: prescription medications, codeine. Modifying factors: The symptoms are alleviated by nothing. the symptoms are aggravated by movement. Associated signs and symptoms: Pertinent positives: decreased range of motion, pain. Severity of symptoms: At their worst the symptoms were moderate, in the emergency department the symptoms are unchanged. The patient has not experienced similar symptoms in the past. The patient has not recently seen a physician. 12:49 Pt took 2 Tylenol #3, meloxicam and prednisone for pain group captain. kb Historical: - Allergies: 12:26 None; ss - PMHx: 12:26 Hypertension; ss - PSHx: 12:26 Heart Cath; Juan A rotator cuff; ss - Immunization history:: Client reports receiving the 2nd dose of the Covid vaccine. - Social history:: Smoking status: Patient denies any tobacco usage or history of. ROS: 12:41 Constitutional: Negative for fever, chills, and weight loss. kb 12:41 MS/extremity: Positive for decreased range of motion, pain, tenderness, of the right posterior aspect of neck and right shoulder. 12:41 All other systems are negative. Exam: 12:44 Constitutional: This is a well developed, well nourished patient who is awake, alert, kb and in no acute distress. Head/Face: Normocephalic, atraumatic. ENT: Moist Mucous membranes Cardiovascular: Regular rate and rhythm with a normal S1 and S2. No gallops, murmurs, or rubs. No pulse deficits. Respiratory: Respirations even and unlabored. No increased work of breathing. Talking in full sentences Skin: Warm, dry with normal turgor. Normal color. Neuro: Awake and alert, GCS 15, oriented to person, place, time, and situation. Moves all extremities. Normal gait. Psych: Awake, alert, with orientation to person, place and time. Behavior, mood, and affect are within normal limits. 12:44 Neck: External neck: tenderness, that is moderate, of the right posterior aspect of neck, C-spine: appears grossly normal. 12:44 Musculoskeletal/extremity: Extremities: grossly normal except: noted in the right shoulder: decreased ROM, pain, tenderness, ROM: limited active range of motion due to pain, Circulation is intact in all extremities. Sensation intact. Vital Signs: 12:25 BP 132 / 64; Pulse 78; Resp 16; Temp 98.9(TE); Pulse Ox 99% on R/A; Weight 71.21 kg; ss Height 5 ft. 4 in. (162.56 cm); Pain 10/10; 12:25 Body Mass Index 26.95 (71.21 kg, 162.56 cm) ss MDM: 12:35 Patient medically screened. kb 12:41 Data reviewed: vital signs, nurses notes. Data interpreted: Pulse oximetry: on room air kb is 99 %. Interpretation: normal. Counseling: I had a detailed discussion with the patient and/or guardian regarding: the historical points, exam findings, and any diagnostic results supporting the discharge/admit diagnosis, the need for outpatient follow up, a orthopedic surgeon, to return to the emergency department if symptoms worsen or persist or if there are any questions or concerns that arise at home. 12:41 ED course: Offered to do an x-ray. Pt elected not to have that done at this time. kb Administered Medications: 12:48 Drug: SOLU-Medrol (methylPREDNISolone sodium succinate) 125 mg Route: IM; Site: right ko1 gluteus; 12:48 Drug: morphine 4 mg Route: IM; Site: left deltoid; ko1 12:48 Drug: Zofran (Ondansetron) 4 mg Route: PO; ko1 Disposition: 16:17 Co-signature as Attending Physician, Bharath St MD I agree with the assessment and kdr plan of care. Disposition Summary: 11/04/22 12:49 Discharge Ordered Location: Home kb Condition: Stable kb Diagnosis - Radiculopathy, cervical region kb Followup: kb - With: Emergency Department - When: As needed - Reason: Worsening of condition Followup: kb - With: Private Physician - When: 2 - 3 days - Reason: Recheck today's complaints, Continuance of care, Re-evaluation by your physician Discharge Instructions: - Discharge Summary Sheet kb - Cervical Radiculopathy, [id number] kb Forms: - Medication Reconciliation Form kb - Thank You Letter kb - Antibiotic Education kb - Prescription Opioid Use kb Signatures: Bobbi Crocker, TICO-[employer]IP[employer]-Bharath Graves MD MD kdr Traci Montilla, RN RN ss Tesha Casarez RN RN ko1
--- NOTE | 2022-11-04 12:50 | ER ---
Nurse's Notes [facility] Name: Elena Chan Age: 67 yrs Sex: Female : 1955 Arrival Date: 11/04/2022 Time: 11:55 Bed Treatment Private MD: Diagnosis: Radiculopathy, cervical region Presentation: 11/04 12:25 Chief complaint: Patient states: R shoulder and arm pain that is chronic, but got much ss worse this morning. Denies injury. Pt reports that she was moving heavy boxes last night. Coronavirus screen: Client denies travel out of the [place] in the last 14 days. Ebola Screen: Patient denies exposure to infectious person. Patient denies travel to an Ebola-affected area in the 21 days before illness onset. Initial Sepsis Screen: Does the patient meet any 2 criteria? No. Patient's initial sepsis screen is negative. Does the patient have a suspected source of infection? No. Patient's initial sepsis screen is negative. Risk Assessment: Do you want to hurt yourself or someone else? Patient reports no desire to harm self or others. Onset of symptoms was November 04, 2022. 12:25 Method Of Arrival: Ambulatory ss 12:25 Acuity: FAN 4 ss Triage Assessment: 12:30 General: Appears uncomfortable, Behavior is calm, cooperative. Neuro: Level of ss Consciousness is awake, alert, obeys commands. Respiratory: Airway is patent Respiratory effort is even, unlabored, Respiratory pattern is regular, symmetrical. Derm: Skin is pink, warm \T\ dry. Musculoskeletal: Range of motion: limited in right shoulder. Historical: - Allergies: 12:26 None; ss - PMHx: 12:26 Hypertension; ss - PSHx: 12:26 Heart Cath; Juan A rotator cuff; ss - Immunization history:: Client reports receiving the 2nd dose of the Covid vaccine. - Social history:: Smoking status: Patient denies any tobacco usage or history of. Screenin:29 Abuse screen: Denies threats or abuse. Denies injuries from another. Nutritional ss screening: No deficits noted. Tuberculosis screening: Never had TB. Fall Risk None identified. Assessment: 12:29 Reassessment: Pt reports she took 2 tablets of Tylenol #3 two hours ago and a meloxicam ss tablet. Vital Signs: 12:25 BP 132 / 64; Pulse 78; Resp 16; Temp 98.9(TE); Pulse Ox 99% on R/A; Weight 71.21 kg; ss Height 5 ft. 4 in. (162.56 cm); Pain 10/10; 12:25 Body Mass Index 26.95 (71.21 kg, 162.56 cm) ED Course: 11:55 Patient arrived in ED. as 11:57 Bobbi Crocker FNP-C is [facility]. kb 11:[address] MD is Attending Physician. kb 12:26 Triage completed. ss 12:26 Arm band placed on left wrist. ss 12:38 Tesha Casarez, RN is Primary Nurse. ko1 13:01 Patient has correct armband on for positive identification. Bed in low position. Call ko1 light in reach. Side rails up X 1. 13:01 No provider procedures requiring assistance completed. Patient did not have IV access ko1 during this emergency room visit. Administered Medications: 12:48 Drug: SOLU-Medrol (methylPREDNISolone sodium succinate) 125 mg Route: IM; Site: right ko1 gluteus; 12:48 Drug: morphine 4 mg Route: IM; Site: left deltoid; ko1 12:48 Drug: Zofran (Ondansetron) 4 mg Route: PO; ko1 Medication: 12:29 VIS not applicable for this client. Outcome: 12:49 Discharge ordered by . kb 13:01 Discharged to home ambulatory, with family. ko1 13:01 Condition: stable 13:01 Discharge instructions given to patient, family, Instructed on discharge instructions, follow up and referral plans. Demonstrated understanding of instructions, follow-up care. 13:02 Patient left the ED. ko1 Signatures: Bobbi Crocker FNP-C FNP-Ckb Martinez, Amelia as Smirch, Shelby, RN RN Tesha Casarez, CHRISTEN RN ko1
[2022-11-04 13:07] VITALS: BP 132/64; TEMP 98.9; O2SAT 99
== END 2022-11-04 13:02 | disposition home or self-care (01) ==
LOC: ER 11:52
DX: M54.12 Radiculopathy, cervical region (principal); I10 Essential (primary) hypertension
CPT/HCPCS: 96372; 99283; Q0162; J2930

== ENCOUNTER 2022-11-09 12:23 | Emergency (ER) | payer OTHER ==
[2022-11-09] MEDS ORDERED: ONDANSETRON 4 MG/2 ML VIAL ONE ×3 (13:33→23:18)
[2022-11-09] MEDS ORDERED: NA CHLORIDE 0.9% 1,000 ML ONE ×3 (13:33→19:49)
[2022-11-09 14:11] LABS: Absolute Lymphocytes (CBC) 2.1 K/uL (0.7-4.9); Hematocrit 34.6 % (36.0-45.0); Lymphocytes % 16.4 % (15.3-44.8); MCV 88.2 fL (80-100); MPV 8.6 fL (7.6-11.3); RBC Red Blood Cell Count 3.93 M/uL (3.86-4.86)
[2022-11-09 14:14] LABS: Protime INR 2.93
[2022-11-09 14:38] LABS: Albumin 3.2 g/dL (3.4-5.0); Bilirubin Total 1.1 mg/dL (0.2-1.0); Potassium 3.7 mmol/L (3.5-5.1); Protein, Total 6.3 g/dL (6.4-8.2); Thyroid Stimulating Hormone 1.31 uIU/mL (0.358-3.740); Troponin High Sensitivity 35.7 pg/mL (<58.9)
--- NOTE | 2022-11-09 15:06 | RAD REPORT ---
EXAM DESCRIPTION: RAD - Chest Single View - 11/09/2022 2:53 pm CLINICAL HISTORY: DYSPNEA COMPARISON: 10/09/2022 FINDINGS: Lines: None. Lungs: Ill-defined opacities are present at the right lung base. Pleural: No significant pleural effusions or pneumothorax. Cardiac: Cardiomegaly. Mediastinum: Within normal limits. Bones: No acute fractures. Other: None IMPRESSION: Airspace disease at the right lung base could reflect pneumonia/pneumonitis.
[2022-11-09 16:53] LABS: SARS-CoV-2 Antigen Rapid Res Negative (Negative)
[2022-11-09] MEDS ORDERED: LIDOCAINE 2% MPF 5 ML VIAL ONE ×2 (18:53→19:03)
[2022-11-09] MEDS ORDERED: MORPHINE 4 MG/ML SYR ONE ×2 (19:17→19:29)
[2022-11-09] MEDS ORDERED: EPINEPHrine 1 MG/10 ML SYR ONE ×2 (19:20→23:18)
--- NOTE | 2022-11-09 19:33 | ER ---
Nurse's Notes [facility] Name: Elena Chan Age: 67 yrs Sex: Female : 1955 Arrival Date: 11/09/2022 Time: 12:25 Bed 30 Private MD: Diagnosis: Pericardial effusion (noninflammatory);Hypotension, unspecified Presentation: 11/09 13:10 Chief complaint: Patient's son or daughter states: she had a watchman procedure on the iw 7th [address] Dr[address] Cruz in [place], she has been having trouble breathing and stiffness , she has been pale for two days, she was vomiting today and her lips turned purple, she hasn;t been able to do anything for the past couple days, shes' dizzy. Coronavirus screen: At this time, the client does not indicate any symptoms associated with coronavirus-19. Ebola Screen: Patient negative for fever greater than or equal to 101.5 degrees Fahrenheit, and additional compatible Ebola Virus Disease symptoms Patient denies exposure to infectious person. Patient denies travel to an Ebola-affected area in the 21 days before illness onset. No symptoms or risks identified at this time. Initial Sepsis Screen: Does the patient meet any 2 criteria? No. Patient's initial sepsis screen is negative. Does the patient have a suspected source of infection? No. Patient's initial sepsis screen is negative. Risk Assessment: Do you want to hurt yourself or someone else? Patient reports no desire to harm self or others. Onset of symptoms was November 09, 2022. 13:10 Method Of Arrival: Ambulatory iw 13:10 Acuity: FAN 2 iw Triage Assessment: 13:30 General: Appears in no apparent distress. uncomfortable, Behavior is cooperative, bp appropriate for age, anxious. Pain: Denies pain. EENT: No deficits noted. Neuro: Level of Consciousness is awake, alert, obeys commands, Oriented to Appropriate for age Reports dizziness. Cardiovascular: Rhythm is sinus rhythm. Respiratory: Reports shortness of breath Onset: The symptoms/episode began/occurred at an unknown time. the patient has mild shortness of breath. GI: No signs and/or symptoms were reported involving the gastrointestinal system. : No signs and/or symptoms were reported regarding the genitourinary system. Derm: No deficits noted. Musculoskeletal: No deficits noted. Historical: - Allergies: 14:06 none; bp - Home Meds: 14:06 Aspirin Oral [Active]; Plavix 75 mg Oral tab 1 tab once daily [Active]; bp - PMHx: 14:06 Hypertension; bp - PSHx: 14:06 Juan A rotator cuff; heart cath; WATCHMAN; bp - Immunization history:: Adult Immunizations up to date. - Social history:: Smoking status: Patient denies any tobacco usage or history of. - Family history:: not pertinent. Screenin:30 Abuse screen: Denies threats or abuse. Denies injuries from another. Nutritional bp screening: No deficits noted. Tuberculosis screening: No symptoms or risk factors identified. Fall Risk None identified. Assessment: 14:10 General: SEE TRIAGE NOTE. bp 15:23 Reassessment: No changes from previously documented assessment. Patient and/or family bp updated on plan of care and expected duration. Pain level reassessed. Cardiovascular: Rhythm is sinus rhythm. Respiratory: Airway is patent Respiratory effort is even, unlabored, Breath sounds are clear bilaterally. 15:48 Reassessment: PER MD, PERICARDIAL TAMPONADE NOTED ON RAD. TRANSFER INITIATED. bp 17:25 Reassessment: REPORT TO MEHDI VELÁSQUEZ AT [facility], [facility] PENDING FOR TRANSPORT. bp 18:27 Reassessment: TRANSFER ON HOLD FOR ACCEPTING PHYSICIAN. DR CRUZ AT B/S FOR PROPOSED bp B/S PERICARDIOCENTESIS WITH SHEET METAL APPRENTICE. 19:00 General: Appears distressed, uncomfortable, pale. Behavior is calm, cooperative, pf1 appropriate for age. 19:00 Pain: Complains of pain in abdomen and neck. pf1 19:10 : No deficits noted. No signs and/or symptoms were reported regarding the pf1 genitourinary system. EENT: No deficits noted. Derm: Skin is intact, Skin is dry, Skin is pale, Dr. Cruz at attempting to perform a pericardiocentesis. 19:15 Neuro: No deficits noted. Level of Consciousness is awake, alert, obeys commands, pf1 Oriented to person, place, time, situation, Speech is normal, Facial symmetry appears normal, Pupils are PERRLA, Pupil Size: 3 mm. 19:15 Respiratory: Reports shortness of breath at rest on exertion since 11/06/22 Airway is pf1 patent Respiratory effort is even, unlabored. GI: No deficits noted. Reports lower abdominal pain. 19:57 General: Emergency Blood Transfusion ordered. pf1 20:05 General: Blood Transfusion initiated \T\2004 of O negative PRBC leukored : See paper pf1 charting. 20:16 General: Blood transfusion completed. Patient denies any signs or symptoms of blood pf1 transfusion reaction.. Vital Signs: 13:10 BP 76 / 57; Pulse 105; Resp 16; Temp 98.1; Pulse Ox 98% on R/A; Weight 70.31 kg; Height bp 5 ft. 4 in. (162.56 cm); 14:06 BP 95 / 73; Pulse 80; Resp 20; Pulse Ox 96% ; bp 15:23 BP 109 / 78; Pulse 101; Resp 16; Pulse Ox 97% ; bp 16:30 BP 93 / 71; Pulse 92; Resp 16; Pulse Ox 97% ; bp 17:28 BP 102 / 79; Pulse 89; Resp 16; Pulse Ox 97% ; bp 18:27 BP 94 / 77; Pulse 92; Resp 17; Pulse Ox 99% ; bp 19:11 BP 62 / 47; Pulse 82; Resp 24; Pulse Ox 100% on R/A; pf1 19:15 BP 157 / 113; Pulse 98; Resp 22; Pulse Ox 97% on R/A; pf1 19:18 BP 224 / 205; Pulse 107; Resp 25; Pulse Ox 100% on 2 lpm NC; pf1 19:40 BP 76 / 54; Pulse 95; Resp 18; Pulse Ox 93% on 2 lpm NC; pf1 19:50 BP 112 / 90; Pulse 89; Resp 22; Pulse Ox 96% on 15% Non-rebreather mask; pf1 20:05 BP 86 / 62; Pulse 94; Resp 23; Pulse Ox 96% on 15% Non-rebreather mask; pf1 20:10 BP 120 / 108; Pulse 91; Resp 24; Temp 98.7(A); Pulse Ox 100% on 15% Non-rebreather mask;pf1 20:15 BP 94 / 74; Pulse 90; Resp 21; Temp 98.2(A); Pulse Ox 100% on 15% Non-rebreather mask; pf1 20:20 BP 101 / 64; Pulse 86; Resp 23; Temp 98.5(A); Pulse Ox 100% on 15% Non-rebreather mask; pf1 20:30 BP 95 / 73; Pulse 89; Resp 25; Pulse Ox 100% on 15% Non-rebreather mask; pf1 20:45 BP 91 / 52; Pulse 94; Resp 26; Temp 98.7(A); Pulse Ox 100% on 15% Non-rebreather mask; pf1 20:55 BP 95 / 65; Pulse 88; Resp 26; Temp 98.1(A); Pulse Ox 100% on 15% Non-rebreather mask; pf1 13:10 Body Mass Index 26.61 (70.31 kg, 162.56 cm) bp ED Course: 12:25 Patient arrived in ED. as 13:12 Triage completed. iw 13:14 Prashanth Dial MD is Attending Physician. rt 13:18 Phil Kaufman, RN is Primary Nurse. bp 13:30 Arm band placed on. bp 13:30 Patient has correct armband on for positive identification. Bed in low position. Call bp light in reach. Side rails up X2. 13:50 Inserted saline lock: 20 gauge in right forearm, using aseptic technique. Blood bp collected. 14:55 Chest Single View XRAY In Process Unspecified. EDMS 15:48 Patient transferred, IV remains in place. bp 15:52 initiated a transfer with Jordan Angel Rn from the [facility]. eb 16:[address] Yusuf the armature winder soup person for [facility] with Dr. Dial for eb patient transfer consultation. 16:[address] Guzman called and advised Dr. Dial to try transferring patient to [facility] where patient had her procedure. 16:45 intiated a transfer with Marla Samson from the [facility]. eb 16:59 per Marla [facility] is at transfer closure/ but they will be accepting the patient eb at [facility]. She will call back with MOT once she gets the armature winder to accept/ the ED doctor on duty has accepted but wants it cleared with the armature winder/. 17:37 Per Marla the armature winder from [facility] does not want to accept the patient in eb transfer/ she is going to reach out to her administration and call me back but suggest trying other facilities. 19:32 re initiated a transfer with [facility]. [facility] are aware of the mw2 patient and are willing to accept the patient they just need administrative approval from the transfer center. 19:40 Inserted saline lock: 18 gauge in right antecubital area, using aseptic technique. pf1 19:[address] [facility]. ETA 28 minutes. mw2 19:54 Primary Nurse role handed off by Phil Kaufman, RN mw2 19:[address] with Construction Engineering Manager from [facility]. mw2 20:00 No provider procedures requiring assistance completed. pf1 20:09 Chest Single View XRAY In Process Unspecified. EDMS 20:20 administrative approval given by David Can RN/ patient has been accepted to [address]/ Dr. Covington accepted the patient in transfer/report to be called to [phone]. 20:32 Soniya rojas, RN is Primary Nurse. pf1 Administered Medications: 13:50 Drug: NS 0.9% 1000 ml Route: IV; Rate: 1 bolus; Site: right forearm; bp 19:00 Follow up: IV Status: Completed infusion; IV Intake: 1000ml pf1 13:50 Drug: Zofran (Ondansetron) 4 mg Route: IVP; Site: right forearm; bp 15:24 Follow up: Response: No adverse reaction bp 19:14 Drug: EPINEPHrine 0.1mg/mL 1:10,000 0.5 mg {Note: Epi 0.5 amp was given per dayshift pf1 nurse.} Route: IVP; Site: right wrist; 20:00 Follow up: Response: Blood pressure is elevated pf1 19:15 Drug: NS 0.9% 1000 ml {Note: 1st NS 0.9% 1000ml infusing in right wrist and 2nd NS 0.9% pf1 1000ml infusing in RAC.} Route: IV; Rate: 2 bolus; Site: right antecubital; 21:00 Follow up: IV Status: Completed infusion; IV Intake: 2000ml pf1 19:22 Drug: Zofran (Ondansetron) 4 mg Route: IVP; Site: right antecubital; pf1 20:00 Follow up: Response: Nausea is decreased pf1 19:25 Drug: morphine 4 mg Route: IVP; Infused Over: 4 mins; Site: right wrist; pf1 20:00 Follow up: Response: Pain is decreased pf1 20:15 Drug: Levophed (norepinephrine) 5 mcg/kg/min Route: IV; Rate: calculated rate; Site: pf1 right wrist; 20:55 Follow up: Response: No adverse reaction; IV Status: Infusion continued upon transfer pf1 21:20 Follow up: IV Status: Infusion continued upon transfer pf1 Medication: 20:05 Blood products: PRBCs X 1 unit given. See transfusion record. pf1 21:20 VIS not applicable for this client. pf1 Intake: 19:00 IV: 1000ml; Total: 1000ml. pf1 21:00 IV: 2000ml; Total: 3000ml. pf1 Outcome: 19:32 ER care complete, transfer ordered by . rt 21:20 Transferred by helicopter to other acute care facility: [facility]. pf1 Transfer form completed. Note: Report given to Reena Patricia Life Assistant To The Vice President with [facility] 21:20 critical pf1 21:20 Instructed on the need for transfer, Demonstrated understanding of instructions. 23:12 Patient left the ED. kl Signatures: Dispatcher [employer] EDMS Benita Santiago RN RN kl Martinez, Amelia as Williams, Irene, RN RN iw Peltier, Brian, RN RN bp [place], MyKena mw2 Ava Haas Ryan, MD MD rt Soniya rojas RN RN pf1 Corrections: (The following items were deleted from the chart) 14:08 14:06 Social history: Smoking status: Patient denies any tobacco usage or history of. bpbp 14:08 14:06 Immunization history: Adult Immunizations up to date, bp bp 15:25 13:10 BP 76 / 57; Pulse 105bpm; Resp 16bpm; Pulse Ox 98% RA; 70.31 kg; Height 5 ft. 4 bp in.; BMI: 26.6; iw 23:44 20:00 BP 86 / 62; Pulse 94bpm; Resp 23bpm; Pulse Ox 96% 02 15% Non-rebreather mask; pf1 pf1 23:45 20:15 BP 94 / 74; Pulse 90bpm; Resp 21bpm; Pulse Ox 100% 02 15% Non-rebreather mask; pf1pf1 23:56 19:40 General: Emergency Blood Transfusion ordered. pf1 pf1 23:58 20:05 General: Blood Transfusion initiated \T\2005: See paper charting. pf1 pf1
--- NOTE | 2022-11-09 19:33 | EDPHYS ---
Physician Documentation [facility] Name: Elena Chan Age: 67 yrs Sex: Female : 1955 Arrival Date: 11/09/2022 Time: 12:25 Bed 30 Private MD: ED Physician Prashanth Dial HPI: 11/09 16:16 This 67 yrs old Female presents to ER via Ambulatory with complaints of Shortness Of rt Breath, Near Syncope, Vomiting, Facial Swelling. 16:16 The patient has shortness of breath at rest. Onset: The symptoms/episode began/occurred rt gradually, 3 day(s) ago. 17:11 Duration: The symptoms are continuous, and are steadily getting worse. The patient's rt shortness of breath is aggravated by nothing, is alleviated by nothing. Associated signs and symptoms: Pertinent positives: chest pain, dizziness, nausea. Severity of symptoms: At their worst the symptoms were severe. Patient had a watchman procedure performed about 3 days ago. The patient said progressively worsening dizziness, near syncope, nausea as well as chest pain with deep inspiration and facial swelling been worsening since the procedure. Denies other acute complaints at this time. Symptoms are severe in severity, no other aggravating or alleviating factors.. Historical: - Allergies: 14:06 none; bp - Home Meds: 14:06 Aspirin Oral [Active]; Plavix 75 mg Oral tab 1 tab once daily [Active]; bp - PMHx: 14:06 Hypertension; bp - PSHx: 14:06 Juan A rotator cuff; heart cath; WATCHMAN; bp - Immunization history:: Adult Immunizations up to date. - Social history:: Smoking status: Patient denies any tobacco usage or history of. - Family history:: not pertinent. ROS: 17:11 Constitutional: Negative for fever, chills, and weight loss, Eyes: Negative for injury, rt pain, redness, and discharge, ENT: Negative for injury, pain, and discharge, Neck: Negative for injury, pain, and swelling, Back: Negative for injury and pain, MS/Extremity: Negative for injury and deformity, Skin: Negative for injury, rash, and discoloration, Neuro: Negative for headache, weakness, numbness, tingling, and seizure, Psych: Negative for depression, anxiety, suicide ideation, homicidal ideation, and hallucinations. 17:11 Respiratory: Positive for dyspnea on exertion, shortness of breath. 17:11 Abdomen/GI: Positive for nausea, Negative for abdominal pain. 17:11 Neuro: Positive for near syncope, Negative for altered mental status. Exam: 17:11 Head/Face: Normocephalic, atraumatic. Eyes: Pupils equal round and reactive to light, rt extra-ocular motions intact. Lids and lashes normal. Conjunctiva and sclera are non-icteric and not injected. Cornea within normal limits. Periorbital areas with no swelling, redness, or edema. ENT: Nares patent. No nasal discharge, no septal abnormalities noted. Tympanic membranes are normal and external auditory canals are clear. Oropharynx with no redness, swelling, or masses, exudates, or evidence of obstruction, uvula midline. Mucous membranes moist. Chest/axilla: Normal chest wall appearance and motion. Nontender with no deformity. No lesions are appreciated. Cardiovascular: Regular rate and rhythm with a normal S1 and S2. No gallops, murmurs, or rubs. Normal PMI, no JVD. No pulse deficits. Respiratory: Lungs have equal breath sounds bilaterally, clear to auscultation and percussion. No rales, rhonchi or wheezes noted. No increased work of breathing, no retractions or nasal flaring. Abdomen/GI: Soft, non-tender, with normal bowel sounds. No distension or tympany. No guarding or rebound. No evidence of tenderness throughout. Back: No spinal tenderness. No costovertebral tenderness. Full range of motion. Skin: Warm, dry with normal turgor. Normal color with no rashes, no lesions, and no evidence of cellulitis. MS/ Extremity: Pulses equal, no cyanosis. Neurovascular intact. Full, normal range of motion. Neuro: Awake and alert, GCS 15, oriented to person, place, time, and situation. Cranial nerves II-XII grossly intact. Motor strength 5/5 in all extremities. Sensory grossly intact. Cerebellar exam normal. Normal gait. Psych: Awake, alert, with orientation to person, place and time. Behavior, mood, and affect are within normal limits. 17:11 Constitutional: The patient appears in obvious distress, moderately distressed, obviously ill. Vital Signs: 13:10 BP 76 / 57; Pulse 105; Resp 16; Temp 98.1; Pulse Ox 98% on R/A; Weight 70.31 kg; Height bp 5 ft. 4 in. (162.56 cm); 14:06 BP 95 / 73; Pulse 80; Resp 20; Pulse Ox 96% ; bp 15:23 BP 109 / 78; Pulse 101; Resp 16; Pulse Ox 97% ; bp 16:30 BP 93 / 71; Pulse 92; Resp 16; Pulse Ox 97% ; bp 17:28 BP 102 / 79; Pulse 89; Resp 16; Pulse Ox 97% ; bp 18:27 BP 94 / 77; Pulse 92; Resp 17; Pulse Ox 99% ; bp 19:11 BP 62 / 47; Pulse 82; Resp 24; Pulse Ox 100% on R/A; pf1 19:15 BP 157 / 113; Pulse 98; Resp 22; Pulse Ox 97% on R/A; pf1 19:18 BP 224 / 205; Pulse 107; Resp 25; Pulse Ox 100% on 2 lpm NC; pf1 19:40 BP 76 / 54; Pulse 95; Resp 18; Pulse Ox 93% on 2 lpm NC; pf1 19:50 BP 112 / 90; Pulse 89; Resp 22; Pulse Ox 96% on 15% Non-rebreather mask; pf1 20:05 BP 86 / 62; Pulse 94; Resp 23; Pulse Ox 96% on 15% Non-rebreather mask; pf1 20:10 BP 120 / 108; Pulse 91; Resp 24; Temp 98.7(A); Pulse Ox 100% on 15% Non-rebreather mask;pf1 20:15 BP 94 / 74; Pulse 90; Resp 21; Temp 98.2(A); Pulse Ox 100% on 15% Non-rebreather mask; pf1 20:20 BP 101 / 64; Pulse 86; Resp 23; Temp 98.5(A); Pulse Ox 100% on 15% Non-rebreather mask; pf1 20:30 BP 95 / 73; Pulse 89; Resp 25; Pulse Ox 100% on 15% Non-rebreather mask; pf1 20:45 BP 91 / 52; Pulse 94; Resp 26; Temp 98.7(A); Pulse Ox 100% on 15% Non-rebreather mask; pf1 20:55 BP 95 / 65; Pulse 88; Resp 26; Temp 98.1(A); Pulse Ox 100% on 15% Non-rebreather mask; pf1 13:10 Body Mass Index 26.61 (70.31 kg, 162.56 cm) bp MDM: 13:15 Patient medically screened. rt 17:16 Differential diagnosis: Acute anemia, pericardial effusion or tamponade, dysrhythmia, rt acute coronary syndrome. Data reviewed: vital signs, nurses notes, lab test result(s), EKG, radiologic studies. ED course: Presents to the ED with dizziness, nausea after having a watchman procedure be performed. The patient was initially hypotensive, responsive to fluids. Patient is normotensive at the time of transfer. The patient has an unremarkable chest x-ray, EKG shows is are consistent with pericarditis. The patient's labs are benign. Discussed case with Dr. Ledesma the procedure. He arrived at bedside to do a echo which revealed a large pericardial effusion. He recommended transfer to another facility where they could perform this procedure. Discussed the case with the on-call patrol judge at [facility] initially accepted the patient. Patient was later declined due to capacity. Later, when to transfer the patient to [facility], auto accepted. Believe the [facility] and high risk for rapid decline.. 19:32 ED course: After multiple attempts at transfer, Dr. Ledesma elected to do the procedure rt at bedside. During the procedure, patient became acutely hypotensive. Sent for x-ray. Dr. Ledesma arranged for transfer to [facility] for Railway Signalling Engineer. Will send by helicopter due to unstable status.. 11/09 13:25 Order name: CBC with Diff; Complete Time: 14:39 rt 11/09 13:25 Order name: CMP; Complete Time: 15:11 rt 11/09 13:25 Order name: PT-INR; Complete Time: 14:39 rt 11/09 13:25 Order name: Ptt, Activated; Complete Time: 14:39 rt 11/09 13:25 Order name: Troponin High Sensitivity; Complete Time: 15:11 rt 11/09 13:25 Order name: BNP; Complete Time: 15:11 rt 11/09 13:25 Order name: Lactate w/ 2H reflex if indic.; Complete Time: 14:39 rt 11/09 13:25 Order name: TSH; Complete Time: 15:11 rt 11/09 13:58 Order name: Chest Single View XRAY; Complete Time: 15:11 rt 11/09 15:53 Order name: SARS RAPID; Complete Time: 17:09 eb 11/09 19:31 Order name: Chest Single View XRAY; Complete Time: 20:27 rt 11/09 19:59 Order name: ABO/RH typing EDVT 11/09 19:59 Order name: RBC Leukored Pheresis EDVT 11/09 13:25 Order name: EKG; Complete Time: 13:26 rt EC:11 Rate is 79 beats/min. Rhythm is regular, Normal Sinus Rhythm with No ectopy. QRS [place] rt is Normal. [place] interval is normal. QRS interval is normal. QT interval is normal. T waves are Normal. ST Segment is elevated in leads II, III, aVF, V2, V3, V4, V5, V6, <1mm. Interpreted by me. Administered Medications: 13:50 Drug: NS 0.9% 1000 ml Route: IV; Rate: 1 bolus; Site: right forearm; bp 19:00 Follow up: IV Status: Completed infusion; IV Intake: 1000ml pf1 13:50 Drug: Zofran (Ondansetron) 4 mg Route: IVP; Site: right forearm; bp 15:24 Follow up: Response: No adverse reaction bp 19:14 Drug: EPINEPHrine 0.1mg/mL 1:10,000 0.5 mg {Note: Epi 0.5 amp was given per dayshift pf1 nurse.} Route: IVP; Site: right wrist; 20:00 Follow up: Response: Blood pressure is elevated pf1 19:15 Drug: NS 0.9% 1000 ml {Note: 1st NS 0.9% 1000ml infusing in right wrist and 2nd NS 0.9% pf1 1000ml infusing in RAC.} Route: IV; Rate: 2 bolus; Site: right antecubital; 21:00 Follow up: IV Status: Completed infusion; IV Intake: 2000ml pf1 19:22 Drug: Zofran (Ondansetron) 4 mg Route: IVP; Site: right antecubital; pf1 20:00 Follow up: Response: Nausea is decreased pf1 19:25 Drug: morphine 4 mg Route: IVP; Infused Over: 4 mins; Site: right wrist; pf1 20:00 Follow up: Response: Pain is decreased pf1 20:15 Drug: Levophed (norepinephrine) 5 mcg/kg/min Route: IV; Rate: calculated rate; Site: pf1 right wrist; 20:55 Follow up: Response: No adverse reaction; IV Status: Infusion continued upon transfer pf1 21:20 Follow up: IV Status: Infusion continued upon transfer pf1 Disposition: 17:16 Critical Care:. rt Disposition Summary: 11/09/22 19:32 Transfer Ordered Transfer Location: Other Acute Care Facility rt Reason: Higher level of care rt Condition: Critical rt Problem: new rt Symptoms: have worsened rt Accepting Physician: Callie(11/09/22 23:12) sabrina Diagnosis - Pericardial effusion (noninflammatory) rt - Hypotension, unspecified rt Forms: - Medication Reconciliation Form rt - SBAR form rt Critical care time excluding procedures: 17:16 Critical care time: Bedside Care: 30 minutes, Consultation: 20 minutes. Total time: 50 rt minutes Signatures: Dispatcher [employer] EDMS Benita Santiago RN RN kl Waters, Shelly, BAGGING SALVAGER-C BAGGING SALVAGER-Csnw Phil Kaufman RN RN Prashanth Singer MD MD rt Soniya rojas RN RN pf1 Corrections: (The following items were deleted from the chart) 14:08 14:06 Social history: Smoking status: Patient denies any tobacco usage or history of. bpbp 14:08 14:06 Immunization history: Adult Immunizations up to date, bp bp 23:12 19:32 Callie rt sabrina
[2022-11-09] MEDS ORDERED: NOREPINEPHRINE BITARTRATE/D5W 4 MG/250 ML BAG IV ONE (19:54)
[2022-11-09] MEDS ORDERED: HYDROMORPHONE HCL 0.5 MG/0.5 ML INJ ONE (19:55)
[2022-11-09] MEDS ORDERED: NA CHLORIDE 0.9% 250 ML ONE (20:04)
--- NOTE | 2022-11-09 20:13 | RAD REPORT ---
EXAM DESCRIPTION: RAD - Chest Single View - 11/09/2022 8:07 pm CLINICAL HISTORY: hypotension COMPARISON: <Comparisons> FINDINGS: Lines: None. Lungs: Opacity at the right lung base have improved. Is likely represent atelectasis. Pleural: No significant pleural effusions or pneumothorax. Cardiac: Similar size and configuration. Mediastinum: Within normal limits. Bones: No acute fractures. Other: Defibrillator pad. IMPRESSION: Airspace disease at the right lung improved, likely representing resolved atelectasis. N o definite acute process. .
--- NOTE | 2022-11-09 20:59 | CON ---
Date of Consultation: 11/09/2022 Reason For Consultation: Chest pain, low blood pressure, and shortness of breath. History Of Present Illness: This is a 67-year-old female with a past medical history of paroxysmal a trial fibrillation, coronary artery disease, and hypertension who presented to the emergency room wit h chest pain. She is status post left appendage closure 4 days ago. She also had significant dizzin ess and clammy feeling, arrived to the ER pale, hypotensive with blood pressure in the 70s, and respo nded immediately to IV fluid bolus. I evaluated the patient by bedside and did a bedside echo and sh e had large pericardial effusion and planned for immediate transfer for pericardiocentesis and perica rdial drain placement. Past Medical History: As outlined above. Medications: Refer to reconciliation sheet for detailed list. Allergies: LEVOFLOXACIN. Family History: No premature coronary artery disease or cancer. Social History: She does not smoke or drink. Does not use any drugs. Review of Systems: All systems reviewed and they were negative except for what is mentioned in HPI. Physical Examination: Vital Signs: Reviewed. Head And Neck: Pupils are equal and reactive to light. Intact eye movements. No JVD. No cervical lymphadenopathy. Neck is supple. Thyroid is not enlarged. Lungs: Clear to auscultation bilaterally. No rhonchi, wheezing, or crackles. No accessory muscle u se. Heart: Regular rate and rhythm. No extra sounds. Abdomen: Soft, nontender. Bowel sounds positive. No organomegaly. No masses or hernia. No rigidi ty or rebound. Extremities: No edema, clubbing, or cyanosis. Intact pulses. Skin: No rashes. Neurologic: Alert, awake, and oriented x3. No acute focal deficits appreciated. Lymph Nodes: No cervical or axillary lymphadenopathy. Investigations: Labs reviewed. Assessment/recommendations: 1.Large pericardial effusion with hemodynamic compromise, responded to IV fluids very well. Her blo od pressure is normal now and the patient is hemodynamically stable. I recommended an immediate frausto sfer to higher level of care for emergent pericardiocentesis and pericardial drain placement. This i s likely a complication of the Watchman device. 2.Coronary artery disease. Her EKG is showing signs of pericarditis. This is not an acute coronary syndrome. These symptoms are related to pericardial effusion and we are transferring the patient im mediately. SR/MODL Voice ID: [id number] Report ID: [id number]
[2022-11-10 02:08] VITALS: O2SAT 100
[2022-11-10 02:12] VITALS: BP 95/65; TEMP 98.1
--- NOTE | 2022-11-11 15:01 | EKG ---
Test Date: 2022-11-09 Test Time: 14:20:32 Casting Wheel Operator Helper: MELINDA MEASUREMENT RESULTS: Intervals: Rate: 79 NE: 144 QRSD: 80 QT: 372 QTc: 426 [place]: P: 68 NE: 144 QRS: 42 T: 72 INTERPRETIVE STATEMENTS: Normal sinus rhythm with sinus arrhythmia Diffuse ST elevation likely pericarditis Abnormal ECG Compared to ECG 10/09/2022 11:00:03 ST (T wave) deviation now present Myocardial infarct finding now present Electronically Signed On 11-11-22 14:57:06 TACTICAL INTELLIGENCE OFFICER by Yuval Ledesma
== END 2022-11-09 23:12 ==
LOC: ER 12:23
DX: I31.39 Other pericardial effusion (noninflammatory) (principal); I95.9 Hypotension, unspecified; I10 Essential (primary) hypertension; Z20.822 Contact with and (suspected) exposure to COVID-19; Z79.01 Long term (current) use of anticoagulants; Z79.82 Long term (current) use of aspirin
CPT/HCPCS: 93005; 85025; 36415; 86900; 85610; 86901; 83605; 85730; 84443; 84484; 80053; 83880; 71045 ×2; 36430; 99285; 87811; J2001 ×2; J0171 ×2; P9016; J7050; J7030 ×3; J2405 ×3; J1170

== ENCOUNTER 2022-11-23 11:51 | Emergency (ER) | payer OTHER ==
--- NOTE | 2022-11-23 12:44 | RAD REPORT ---
EXAM DESCRIPTION: RAD - Chest Single View - 11/23/2022 12:31 pm CLINICAL HISTORY: SOB Chest pain. COMPARISON: <Comparisons> FINDINGS: Portable technique limits examination quality. There is a mild opacity in the left lung base which probably represents atelectasis or developing pne umonia. The heart is normal in size. No displaced fractures.
[2022-11-23 12:50] LABS: Absolute Lymphocytes (CBC) 1.3 K/uL (0.7-4.9); Hematocrit 29.4 % (36.0-45.0); Lymphocytes % 13.2 % (15.3-44.8); MCV 86.6 fL (80-100); MPV 6.9 fL (7.6-11.3)
[2022-11-23 12:56] LABS: Protime INR 1.18
[2022-11-23 13:39] LABS: Bilirubin Total 1.1 mg/dL (0.2-1.0); Magnesium 1.8 mg/dL (1.6-2.4); Potassium 3.8 mmol/L (3.5-5.1); Troponin High Sensitivity 54.2 pg/mL (<58.9)
[2022-11-23] MEDS ORDERED: ONDANSETRON 4 MG/2 ML VIAL ONE (14:57)
[2022-11-23] MEDS ORDERED: FUROSEMIDE 20 MG/ 2ML VIAL ONE (14:57)
--- NOTE | 2022-11-23 16:35 | RAD REPORT ---
EXAM DESCRIPTION: CT - Chest For Pe Angio - 11/23/2022 4:13 pm CLINICAL HISTORY: Chest pain. SOB, elevated D-dimer COMPARISON: <Comparisons> TECHNIQUE: CT angiogram of the pulmonary arteries was performed with MIP. All CT scans are performed using dose optimization technique as appropriate and may include automated exposure control or mA/KV adjustment according to patient size. FINDINGS: No evidence of pulmonary thromboembolism. No acute aortic finding demonstrated. Mild linear atelectasis is seen in the left lung base. The lungs are otherwise clear. Small hernia. No significant pericardial or pleural fluid. No concerning bony finding. Mild free fluid is seen in the upper abdomen. IMPRESSION: No evidence of pulmonary thromboembolism. No acute lung findings. Mild free fluid noted in the upper abdomen, incompletely visualized/assessed.
--- NOTE | 2022-11-23 17:11 | ER ---
Nurse's Notes [facility] Name: Elena Chan Age: 67 yrs Sex: Female : 1955 Arrival Date: 11/23/2022 Time: 11:53 Bed 13 Private MD: Yuval Ledesma Diagnosis: Palpitations;Nausea with vomiting, unspecified;Anxiety Presentation: 11/23 12:10 Chief complaint: Patient states: Discharged from hospital in [place] on 11/14 after ph being Life Flighted there for pericardial effusion. States that she has not flet well since. C/O weakness, dizziness, nausea, headache, has palpations at night when lying down, denies pain. Coronavirus screen: Vaccine status: Patient reports receiving the 2nd dose of the covid vaccine. Ebola Screen: No symptoms or risks identified at this time. Initial Sepsis Screen: Does the patient meet any 2 criteria? No. Patient's initial sepsis screen is negative. Does the patient have a suspected source of infection? No. Patient's initial sepsis screen is negative. Risk Assessment: Do you want to hurt yourself or someone else? Patient reports no desire to harm self or others. Onset of symptoms was November 23, 2022. 12:10 Method Of Arrival: Ambulatory ph 12:10 Acuity: FAN 3 ph Triage Assessment: 12:14 General: Appears in no apparent distress. Behavior is cooperative, anxious. Pain: ph Denies pain. Neuro: Level of Consciousness is awake, alert, obeys commands, Oriented to person, place, time, situation. GI: Reports nausea, vomiting. Historical: - Allergies: 12:13 Levofloxacin; ph - PMHx: 12:13 Hypertension; ph - PSHx: 12:13 Juan A rotator cuff; heart cath; watchman; ph - Immunization history:: Adult Immunizations unknown. - Social history:: Smoking status: Patient denies any tobacco usage or history of. Screenin:10 [facility] ED Fall Risk Assessment (Adult) History of falling in the last 3 months, eh3 including since admission No falls in past 3 months (0 pts) Confusion or Disorientation No (0 pts) Intoxicated or Sedated No (0 pts) Impaired Gait Yes (1 pt) Mobility Assist Device Used No (0 pt) Altered Elimination Yes (1 pt) Score/Fall Risk Level 0 - 2 = Low Risk Oriented to surroundings, Maintained a safe environment, Educated pt \T\ family on fall prevention, incl call for assistance when getting out of bed, Assessed \T\ reinforced patient's understanding of fall precautions, Hourly rounding (assess needs \T\ fall precautionary measures) done. Abuse screen: Denies threats or abuse. Denies injuries from another. Nutritional screening: No deficits noted. Tuberculosis screening: No symptoms or risk factors identified. Assessment: 12:10 General: Appears distressed, uncomfortable, Behavior is cooperative, appropriate for 1 age, anxious. Pain: Denies pain. Neuro: Level of Consciousness is awake, alert, obeys commands, Oriented to person, place, time, situation. Cardiovascular: Capillary refill < 3 seconds Patient's skin is warm and dry. Respiratory: Airway is patent Respiratory effort is even, unlabored, Respiratory pattern is regular, symmetrical. GI: Abdomen is round non-distended. GI: Reports nausea, vomiting. : No signs and/or symptoms were reported regarding the genitourinary system. EENT: No signs and/or symptoms were reported regarding the EENT system. Derm: No signs and/or symptoms reported regarding the dermatologic system. Musculoskeletal: Circulation, motion, and sensation intact. Range of motion: intact in all extremities, Reports weakness in generalized. 13:00 Reassessment: Patient appears in no apparent distress at this time. Patient and/or 3 family updated on plan of care and expected duration. Pain level reassessed. Patient is alert, oriented x 3, equal unlabored respirations, skin warm/dry/pink. 14:00 Reassessment: Patient appears in no apparent distress at this time. Patient and/or 3 family updated on plan of care and expected duration. Pain level reassessed. Patient is alert, oriented x 3, equal unlabored respirations, skin warm/dry/pink. 15:00 Reassessment: Patient appears in no apparent distress at this time. Patient and/or 3 family updated on plan of care and expected duration. Pain level reassessed. Patient is alert, oriented x 3, equal unlabored respirations, skin warm/dry/pink. 16:00 Reassessment: Patient appears in no apparent distress at this time. Patient and/or 3 family updated on plan of care and expected duration. Pain level reassessed. Patient is alert, oriented x 3, equal unlabored respirations, skin warm/dry/pink. 17:00 Reassessment: Patient appears in no apparent distress at this time. Patient and/or eh3 family updated on plan of care and expected duration. Pain level reassessed. Patient is alert, oriented x 3, equal unlabored respirations, skin warm/dry/pink. Vital Signs: 12:10 BP 128 / 76; Pulse 67; Resp 12; Temp 97.9; Pulse Ox 100% on R/A; Weight 69.85 kg; ph Height 5 ft. 4 in. (162.56 cm); 13:00 BP 114 / 62; Pulse 62; Resp 12; Pulse Ox 98% on R/A; eh3 14:00 BP 106 / 66; Pulse 61; Resp 18; Pulse Ox 98% on R/A; eh3 15:00 BP 117 / 71; Pulse 63; Resp 18; Pulse Ox 100% on R/A; eh3 16:00 BP 103 / 59; Pulse 64; Resp 18; Pulse Ox 99% on R/A; eh3 12:10 Body Mass Index 26.43 (69.85 kg, 162.56 cm) ph ED Course: 11:53 Patient arrived in ED. as 11:54 Yuval Ledesma MD is Private Physician. as 11:55 Graciela Cuevas MD is Attending Physician. sd2 12:04 Day Fleming, RN is Primary Nurse. eh3 12:10 Patient has correct armband on for positive identification. Placed in gown. Bed in low eh3 position. Call light in reach. Side rails up X2. Client placed on continuous cardiac and pulse oximetry monitoring. NIBP monitoring applied. Door closed. Noise minimized. Warm blanket given. 12:13 Triage completed. ph 12:14 Arm band placed on Patient placed in an exam room, on a stretcher, on compliance monitor, ph on pulse oximetry. 12:27 EKG done, by ED staff, reviewed by Graciela Cuevas MD. mm9 12:28 Patient has correct armband on for positive identification. Placed in gown. Bed in low mm9 position. Call light in reach. Side rails up X2. Adult w/ patient. Warm blanket given. pvc monitor on. Pulse ox on. NIBP on. 12:28 Ptt, Activated Sent. rs5 12:28 PT-INR Sent. rs5 12:29 BNP Sent. rs5 12:29 Troponin High Sensitivity Sent. rs5 12:29 CBC with Diff Sent. rs5 12:29 CMP Sent. rs5 12:29 Magnesium Sent. rs5 12:29 Inserted saline lock: 20 gauge in right in left antecubital area, using aseptic rs5 technique. Blood collected. intraosseous access in left, using aseptic technique. 12:33 XRAY Chest (1 view) In Process Unspecified. EDMS 16:14 CT Chest For PE Angio In Process Unspecified. EDMS 17:10 Yuval Ledesma MD is Referral Physician. sd2 17:34 No provider procedures requiring assistance completed. IV discontinued, intact, eh3 bleeding controlled, No redness/swelling at site. Pressure dressing applied. Administered Medications: 14:50 Drug: Zofran (Ondansetron) 4 mg Route: IVP; Site: right antecubital; eh3 17:34 Follow up: Response: Nausea is decreased eh3 14:50 Drug: Lasix (furosemide) 20 mg Route: IVP; Site: right antecubital; eh3 17:34 Follow up: Response: No adverse reaction eh3 Medication: 17:34 VIS not applicable for this client. eh3 Outcome: 17:10 Discharge ordered by . sd2 17:35 Discharged to home ambulatory, with family. eh3 17:35 Condition: stable 17:35 Discharge instructions given to patient, family, Instructed on discharge instructions, follow up and referral plans. Demonstrated understanding of instructions, follow-up care. 17:40 Patient left the ED. eh3 Signatures: Dispatcher [employer] Che Mota Patricia, RN RN Day Fleming RN RN 3 Graciela Cuevas MD MD sd2 Marichuy Moya Lalo Adan rs5
--- NOTE | 2022-11-23 17:11 | EDPHYS ---
Physician Documentation [facility] Name: Elena Chan Age: 67 yrs Sex: Female : 1955 Arrival Date: 11/23/2022 Time: 11:53 Bed 13 Private MD: Yuval Ledesma ED Physician Graciela Cuevas HPI: 11/23 12:10 This 67 yrs old Female presents to ER via Unassigned with complaints of Vomiting, sd2 Weakness. 12:10 67 yo F presents with CC of malaise, weakness since leaving the hospital at [address] recently. Pt had Watchman procedure performed with Dr. Ledesma and had subsequent pericardial effusion on 11/09 requiring transfer to [facility] to have procedure performed for the effusion. Reports associated palpitations that are worsened by lying flat or on her side and SOB. Denies fever or diarrhea.. Historical: - Allergies: 12:13 Levofloxacin; ph - PMHx: 12:13 Hypertension; ph - PSHx: 12:13 Juan A rotator cuff; heart cath; watchman; ph - Immunization history:: Adult Immunizations unknown. - Social history:: Smoking status: Patient denies any tobacco usage or history of. ROS: 12:10 Constitutional: Negative for fever, chills, and weight loss, Eyes: Negative for injury, sd2 pain, redness, and discharge. 12:10 MS/Extremity: Negative for injury and deformity, Skin: Negative for injury, rash, and discoloration, Neuro: Negative for headache, numbness and tingling. 12:10 Cardiovascular: Positive for orthopnea, palpitations, Negative for edema. 12:10 Respiratory: Positive for shortness of breath, Negative for cough, wheezing. 12:10 Abdomen/GI: Positive for nausea, Negative for abdominal pain, vomiting, diarrhea. Exam: 12:10 Constitutional: This is a well developed, well nourished patient who is awake, alert, sd2 and in no acute distress. Pt is anxious appearing and tearful throughout exam. Head/Face: Normocephalic, atraumatic. Eyes: EOMI, normal conjunctiva bilaterally Chest/axilla: Normal chest wall appearance and motion. Nontender with no deformity. Cardiovascular: Regular rate and rhythm with a normal S1 and S2. No gallops, murmurs, or rubs. 2+ distal pulses. Respiratory: Lungs have equal breath sounds bilaterally, clear to auscultation and percussion. No rales, rhonchi or wheezes noted. No increased work of breathing, no retractions or nasal flaring. Abdomen/GI: Soft, non-tender, with normal bowel sounds. No guarding or rebound. No evidence of tenderness throughout. Skin: Warm, dry with normal turgor. Normal color with no rashes, no lesions, and no evidence of cellulitis. MS/ Extremity: Pulses equal, no cyanosis. Neurovascular intact. Full, normal range of motion. Ambulatory without difficulty. Psych: Awake, alert, with orientation to person, place and time. Tearful, anxious appearing. 12:37 ECG was reviewed by the Attending Physician. NSR, rate 63, baseline artifact present, sd2 no STEMI criteria visible Vital Signs: 12:10 BP 128 / 76; Pulse 67; Resp 12; Temp 97.9; Pulse Ox 100% on R/A; Weight 69.85 kg; ph Height 5 ft. 4 in. (162.56 cm); 13:00 BP 114 / 62; Pulse 62; Resp 12; Pulse Ox 98% on R/A; eh3 14:00 BP 106 / 66; Pulse 61; Resp 18; Pulse Ox 98% on R/A; eh3 15:00 BP 117 / 71; Pulse 63; Resp 18; Pulse Ox 100% on R/A; eh3 16:00 BP 103 / 59; Pulse 64; Resp 18; Pulse Ox 99% on R/A; eh3 12:10 Body Mass Index 26.43 (69.85 kg, 162.56 cm) ph MDM: 12:08 Patient medically screened. sd2 12:10 Differential diagnosis: Differential diagnosis includes but is not limited to: ACS, sd2 DVT/PE, pneumothorax, dissection, musculoskeletal, anxiety, anemia, electrolyte abnormality, pneumonia, CHF, COPD among others. Data reviewed: vital signs, nurses notes, old medical records. 14:39 ED course: Discussed case with Dr. Ledesma. Wants to add on D-dimer and give 20 mg IV sd2 Lasix. He will come evaluate the patient in the ED as well. . 17:07 Data reviewed: lab test result(s), EKG, radiologic studies. Counseling: I had a sd2 detailed discussion with the patient and/or guardian regarding: the historical points, exam findings, and any diagnostic results supporting the discharge/admit diagnosis, lab results, radiology results, the need for outpatient follow up, to return to the emergency department if symptoms worsen or persist or if there are any questions or concerns that arise at home. ED course: Dr. Ledesma evaluated patient at bedside. Pt is tolerating PO. No vomiting today. Had one episode yesterday previously. States has a history of IBS and thinks this was due to that mixed with her stress/anxiety. Offered CT scan due to incompletely visualized free fluid in upper abdomen on CTA chest but pt declined after discussing risks and benefits. States she feels well and will return if any further issues or recurrence of symptoms. She is comfortable with plan for discharge and outpatient follow up at this time. Dr. Ledesma to follow the patient up in his clinic.. 11/23 12:10 Order name: CBC with Diff; Complete Time: 13:00 sd2 11/23 12:10 Order name: CMP; Complete Time: 14:06 sd2 11/23 12:10 Order name: Magnesium; Complete Time: 14:06 sd2 11/23 12:10 Order name: Troponin High Sensitivity; Complete Time: 14:06 sd2 11/23 12:10 Order name: BNP; Complete Time: 14:06 sd2 11/23 12:10 Order name: PT-INR; Complete Time: 13:00 sd2 11/23 12:10 Order name: EKG - Nurse/Tech; Complete Time: 12:26 sd2 11/23 12:10 Order name: XRAY Chest (1 view); Complete Time: 12:45 sd2 11/23 12:10 Order name: Ptt, Activated; Complete Time: 13:00 sd2 11/23 13:01 Order name: Procalcitonin; Complete Time: 14:28 sd2 11/23 14:31 Order name: D-Dimer; Complete Time: 14:49 sd2 11/23 14:50 Order name: CT Chest For PE Angio; Complete Time: 16:40 sd2 Administered Medications: 14:50 Drug: Zofran (Ondansetron) 4 mg Route: IVP; Site: right antecubital; eh3 17:34 Follow up: Response: Nausea is decreased eh3 14:50 Drug: Lasix (furosemide) 20 mg Route: IVP; Site: right antecubital; eh3 17:34 Follow up: Response: No adverse reaction eh3 Disposition Summary: 11/23/22 17:10 Discharge Ordered Location: Home sd2 Problem: new sd2 Symptoms: have improved sd2 Condition: Stable sd2 Diagnosis - Palpitations sd2 - Nausea with vomiting, unspecified sd2 - Anxiety sd2 Followup: sd2 - With: Yuval Ledesma MD - When: 2 - 3 days - Reason: Recheck today's complaints, Continuance of care, Re-evaluation by your physician Followup: sd2 - With: Private Physician - When: 2 - 3 days - Reason: Recheck today's complaints, Continuance of care, Re-evaluation by your physician Discharge Instructions: - Discharge Summary Sheet sd2 - Nausea and Vomiting, Adult sd2 - Palpitations sd2 - Managing Anxiety, Adult sd2 Forms: - Medication Reconciliation Form sd2 - Thank You Letter sd2 - Antibiotic Education sd2 - Prescription Opioid Use sd2 Signatures: Dispatcher [employer] Steffany Laird RN RN Day Fleming RN RN [facility] Graciela Cuevas MD MD sd2
--- NOTE | 2022-11-23 17:39 | CON ---
Date of Consultation: 11/23/2022 Reason For Consultation: Shortness of breath. History Of Present Illness: This is a 67-year-old female, history of paroxysmal atrial fibrillation, diastolic heart failure, coronary artery disease, hypertension, presented to the emergency room with nausea, generalized weakness, and mild shortness of breath. She said that at night when she goes to bed, she starts feeling a heart pounding and that is scaring her and causing some nightmares and she is not being able to sleep and she is not able to rest very well. She feels tired as she is not sle eping very well due to that. She had a recent significant pericardial effusion that required pericar diocentesis and she is scared. Denies having any chest pain. I evaluated her by bedside. Hemodynam ically, she is very stable and she does not have any symptoms at the present time. Past Medical History: As outlined above in the HPI. Medications: Refer to reconciliation sheet for detailed list. Allergies: LEVOFLOXACIN. Family History: No premature coronary artery disease or cancer. Social History: She does not smoke or drink. Does not use any drugs. Review of Systems: All systems reviewed and they were negative except what mentioned in HPI. Physical Examination: Vital Signs: Stable. Head and Neck: Pupils are equal, reactive to light. Intact eye movements. No JVD. No cervical lym phadenopathy. Neck is supple. Thyroid is not enlarged. Lungs: Clear to auscultation bilaterally. No rhonchi, wheezing, or crackles. No accessory muscle u se. Heart: Regular rate and rhythm. No extra sounds. Abdomen: Soft, nontender. Bowel sounds positive. No organomegaly. No masses or hernia. No rigidi ty or rebound. Extremities: No edema, clubbing, or cyanosis. Intact pulses. Skin: No rash. Neurologic: Alert, awake, oriented x3. No acute focal deficits appreciated. Investigations: CTA of the lungs showed no evidence of pulmonary embolism and there was no significa nt pericardial or pleural fluids and no PE. Lungs are clear. Has mild free fluids in the upper abdo men and hernia. BUN 17, creatinine 0.98. NT-proBNP is 1412 and troponin 54. Hemoglobin is 10.1. Assessment And Recommendations: 1.Shortness of breath, probably due to diastolic heart failure. CTA was negative for PE and she was given 1 dose of Lasix and she appears to be euvolemic. From Cardiology standpoint, the patient is c linically and hemodynamically stable. No further workup is recommended at this moment. 2.Vomiting and CT scan of the chest showed mild free fluids in the abdomen. We will recommend a CT scan of the abdomen without contrast to further assess this issue. 3.Significant anxiety disorder, likely it is causing most of her symptoms and recommended that she f ollows up with psychiatrist as an outpatient. 4.Atrial fibrillation. She is in sinus rhythm. Continue amiodarone. SR/MODL Voice ID: [id number] Report ID: [id number]
[2022-11-23 17:51] VITALS: TEMP 97.9
[2022-11-23 18:11] VITALS: BP 103/59; O2SAT 99
== END 2022-11-23 17:40 | disposition home or self-care (01) ==
LOC: ER 11:51
DX: R00.2 Palpitations (principal); R11.2 Nausea with vomiting, unspecified; F41.9 Anxiety disorder, unspecified; I10 Essential (primary) hypertension; I48.0 Paroxysmal atrial fibrillation; I50.30 Unspecified diastolic (congestive) heart failure; Z88.1 Allergy status to other antibiotic agents
CPT/HCPCS: 85025; 36415; 83735; 85610; 85379; 85730; 84484; 80053; 84145; 83880; 71275; 71045; Q9967; J1940; J2405; 93005